=== PATIENT | female | born 1950 | race Caucasian/White ===

== ENCOUNTER 2018-09-18 16:42 | Inpatient (IN) | payer MEDICARE, MEDICAID ==
[~2018-09-18] VITALS: Ht 167.6 cm; Wt 55.8 kg
[~2018-09-18 16:42] MED LIST: ASPI1TAB PO; BACT400T PO; CRES20TA PO; GABA-843 PO; GLIP10TA6 PO; HYDR200T3 PO; NOVO1INJ4 SC; OMEP20CA3 PO; TOPA50TA8 PO; TRIC145T22 PO
[2018-09-18] MEDS ORDERED: ACET-683 PO (16:57)
[2018-09-18] MEDS ORDERED: NS 1,000 ML IV ONE (17:00)
[2018-09-18] MEDS ORDERED: LORazepam 2 MG/ML VIAL (J2060) IV STA ×2 (17:38→18:03)
[2018-09-18 18:07] LABS: BASO # 0.1 10^3/uL (0.0-0.2); BASO % 0.4 % (0.0-1.0); EOS # 0.1 10^3/uL (0.0-0.50); EOS % 0.6 % (0.0-3.0); HEMATOCRIT 42.7 % (36.0-47.0); HEMOGLOBIN 14.3 g/dl (12.0-15.5); LYMPH # 2.8 10^3/uL (1.5-4.5); LYMPH % 22.6 % (24.0-44.0); MEAN CORPUSCULAR HEMOGLOBIN 30.8 pg (27.0-33.0); MEAN CORPUSCULAR HGB CONC 33.5 g/dl (32.0-36.5); MEAN CORPUSCULAR VOLUME 91.8 fl (80.0-96.0); MONO # 0.7 10^3/uL (0.0-0.8); MONO % 5.8 % (0.0-5.0); NEUTROPHILS # 8.6 10^3/uL (1.8-7.7); NEUTROPHILS % 70.2 % (36.0-66.0); PLATELET COUNT, AUTOMATED 256 10^3/uL (150-450); RED BLOOD COUNT 4.65 10^6/uL (4.00-5.40); WHITE BLOOD COUNT 12.3 10^3/uL (4.0-10.0)
[2018-09-18] MEDS ORDERED: ADENOSINE 6MG/2ML INJECTION (J0153) IV STA (18:20)
[2018-09-18] MEDS ORDERED: ADENOSINE 6MG/2ML INJECTION (J0153) As Ordered ONE (18:22)
[2018-09-18] MEDS ORDERED: ONDANSETRON 4MG/2ML VIAL (J2405) IV ONE (18:30)
[2018-09-18] MEDS ORDERED: NS 500 ML IV ONE (18:45)
[2018-09-18 18:50] LABS: ALT/SGPT 17 U/L (12-78); BLOOD UREA NITROGEN 25 MG/DL (7-18); CALCIUM LEVEL 9.4 MG/DL (8.8-10.2); CARBON DIOXIDE LEVEL 26 MEQ/L (21-32); CHLORIDE LEVEL 100 MEQ/L (98-107); CREATININE FOR GFR 1.08 MG/DL (0.55-1.30); GLUCOSE, FASTING 183 MG/DL (70-100); POTASSIUM SERUM 5.1 MEQ/L (3.5-5.1); SODIUM LEVEL 137 MEQ/L (136-145)
[2018-09-18 18:51] LABS: ACETAMINOPHEN LEVEL < 2.0 UG/ML (10.0-30.0); ALBUMIN 4.3 GM/DL (3.2-5.2); BILIRUBIN,DIRECT < 0.1 MG/DL (0.0-0.2); BILIRUBIN,TOTAL 0.6 MG/DL (0.2-1.0); CPK CREATINE PHOSPHOKINASE 153 U/L (26-192); ETHYL ALCOHOL (ETHANOL) < 0.003 % (0.000-0.010); SALICYLATE LEVEL 1.8 MG/DL (5.0-30.0); THYROID STIMULATING HORMONE 0.663 uIU/ML (0.358-3.740); TOTAL PROTEIN 8.2 GM/DL (6.4-8.2); TROPONIN I < 0.02 NG/ML (< 0.10)
--- NOTE | 2018-09-18 19:05 | ECGEPIP ---
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
[2018-09-18 21:04] LABS: ABG BASE EXCESS 0.7 (-2.0-2.0); ABG O2 SATURATION 99.4 % (95.0-99.0); ABG PARTIAL PRESSURE CO2 44.3 mmHg (35.0-45.0); ABG PARTIAL PRESSURE O2 170.3 mmHg (75.0-100.0); ABG STANDARD HCO3 25.1 MEQ/L (22.0-26.0); ABG TOTAL CO2 27.3 MEQ/L (23.0-31.0); ABG pH (ARTERIAL) 7.386 UNITS (7.350-7.450)
[2018-09-18] MEDS ORDERED: chlorproMAZINE INJ 50MG/2ML AMP (J3230) IM STA (21:45)
[2018-09-18] MEDS ORDERED: diphenhydrAMINE INJ 50MG/ML VIAL (J1200) IM STA (21:55)
[2018-09-18] MEDS ORDERED: HALOPERIDOL 5 MG/ML VIAL (J1630) IM STA (21:55)
[2018-09-18] MEDS ORDERED: HALOPERIDOL 5 MG/ML VIAL (J1630) IV STA (22:11)
[2018-09-18] MEDS ORDERED: diphenhydrAMINE INJ 50MG/ML VIAL (J1200) IV STA (22:11)
[2018-09-18 22:12] LABS: AMPHETAMINES LEVEL URINE NEGATIVE (NEGATIVE); BARBITURATES URINE NEGATIVE (NEGATIVE); BENZODIAZEPINES URINE NEGATIVE (NEGATIVE); CANNABINOIDS URINE NEGATIVE (NEGATIVE); COCAINE METABOLITE URINE NEGATIVE (NEGATIVE); METHADONE URINE NEGATIVE (NEGATIVE); OPIATES URINE NEGATIVE (NEGATIVE); PHENCYCLIDINE URINE NEGATIVE (NEGATIVE)
[2018-09-18] MEDS ORDERED: NS 1,000 ML IV SCH (22:48)
[2018-09-18] MEDS ORDERED: DEXTROSE 50% 50 ML SYRINGE IV PRN (23:15)
[2018-09-18] MEDS ORDERED: GLUCOSE 4 GM CHEW TABLET PO PRN (23:15)
[2018-09-18] MEDS ORDERED: GLUCAGON FOR INJ 1 MG VIAL (J1610) SC PRN (23:15)
[2018-09-18 23:30] LABS: APPEARANCE, URINE CLEAR (CLEAR); BACTERIA, URINE AUTO NEGATIVE (NEGATIVE); BILIRUBIN, URINE AUTO NEGATIVE (NEGATIVE); BLOOD, URINE BLOOD NEGATIVE (NEGATIVE); COLOR, URINE STRAW (YELLOW); GLUCOSE, URINE (UA) AUTO 1+ mg/dL (NEGATIVE); KETONE, URINE AUTO TRACE mg/dL (NEGATIVE); LEUKOCYTE ESTERASE, URINE AUTO NEGATIVE (NEGATIVE); MUCUS, URINE SMALL (NEGATIVE); NITRITE, URINE AUTO NEGATIVE (NEGATIVE); PROTEIN, URINE AUTO 2+ mg/dL (NEGATIVE); RBC, URINE AUTO 4 /HPF (0-3); SPECIFIC GRAVITY URINE AUTO 1.009 (1.002-1.035); SQUAMOUS EPITHELIAL CELL UR AU 0 /HPF (0-6); UROBILINOGEN, URINE AUTO 0.2 mg/dL (0.0-2.0); WBC, URINE AUTO 0 /HPF (0-3)
[2018-09-19] MEDS ORDERED: chlorproMAZINE INJ 50MG/2ML AMP (J3230) IM STA (00:18)
[2018-09-19] MEDS: HumaLOG INSULIN (NovoLOG) PER UNIT SC SCH ×4 (01:51→17:49)
[2018-09-19 02:28] VITALS: BP 119/74
[2018-09-19 04:00] VITALS: BP 114/76
[2018-09-19 05:36] LABS: HEMATOCRIT 35.9 % (36.0-47.0); MEAN CORPUSCULAR HEMOGLOBIN 30.3 pg (27.0-33.0); MEAN CORPUSCULAR HGB CONC 33.7 g/dl (32.0-36.5); PLATELET COUNT, AUTOMATED 202 10^3/uL (150-450); RED BLOOD COUNT 3.99 10^6/uL (4.00-5.40); WHITE BLOOD COUNT 9.1 10^3/uL (4.0-10.0)
[2018-09-19 05:43] LABS: HEMOGLOBIN 12.1 g/dl (12.0-15.5)
[2018-09-19 05:51] LABS: BLOOD UREA NITROGEN 22 MG/DL (7-18); C REACTIVE PROTEIN QUANTITATIV 1.12 MG/DL (0.00-0.30); CALCIUM LEVEL 8.7 MG/DL (8.8-10.2); CARBON DIOXIDE LEVEL 28 MEQ/L (21-32); CHLORIDE LEVEL 105 MEQ/L (98-107); CREATININE FOR GFR 0.82 MG/DL (0.55-1.30); GLOMERULAR FILTRATION RATE > 60.0 (>45); GLUCOSE, FASTING 117 MG/DL (70-100); POTASSIUM SERUM 3.5 MEQ/L (3.5-5.1); SODIUM LEVEL 139 MEQ/L (136-145)
[2018-09-19] MEDS: HALOPERIDOL 5 MG/ML VIAL (J1630) IV PRN ×2 (06:15→17:09)
[2018-09-19] MEDS: HEPARIN SOD (PORCINE) 5000 UNITS/ML VIAL SC SCH ×3 (06:15→22:49)
--- NOTE | 2018-09-19 06:35 | ECGEPIP ---
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
[2018-09-19 08:00] VITALS: BP 139/91
--- NOTE | 2018-09-19 08:29 | REP ---
AP PORTABLE CHEST: 09/18/2018. Clinical history: Syncope. Comparison: 12/16/2014. Findings: Distended loops of bowel underneath the left diaphragm and over the central upper abdomen. Lungs only marginally adequate in the degree of inflation. There is minor subsegmental atelectatic change above the left diaphragm just lateral to the heart border. No dense consolidation, effusion or mass. No cardiomegaly or edema. Aorta is tortuous and calcified but unchanged. Airway intact. There are degenerative changes of the shoulders and spine. Impression: 1. Some linear atelectatic change at the left base but no cardiomegaly, edema, effusion or definite infiltrate. 2. Bowel loops gas-filled and somewhat distended underneath the left diaphragm and mid upper abdomen. Incomplete evaluation of this finding on a portable chest x-ray. Electronically Signed by Rommel Hong MD 09/19/2018 01:06 P
[2018-09-19] MEDS ORDERED: METOPROLOL 5 MG/5 ML VIAL IV STA ×2 (09:00→19:02)
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
[2018-09-19 12:00] VITALS: BP 134/89
[2018-09-19] MEDS ORDERED: FLEET ENEMA PR PRN (18:15)
[2018-09-19] MEDS ORDERED: SENOKOT S TAB PO PRN (18:15)
--- NOTE | 2018-09-19 19:38 | IPN ---
DATE: 09/19/2018 SUBJECTIVE: Patient is seen and examined in the morning. Patient is completely sedated, not able to answer questions. OBJECTIVE: VITAL SIGNS: Temperature 98, pulse 126, respiratory rate 22, blood pressure 139/91, pulse oximetry 93% in room air. GENERAL: Patient is sedated, patient is not awake or oriented. HEENT: Normocephalic, atraumatic. CARDIOVASCULAR: Tachycardia, positive S1, S2. LUNGS: Clear to auscultation bilaterally. ABDOMEN: Soft, nontender. EXTREMITIES: Patient had amputation of the right lower extremity and there is a dressing wrap on the left foot. No active discharge noted. No lower extremity edema. LABORATORY DATA: WBC 9.1, hemoglobin 12.1, hematocrit 35.9, platelet count 202, sodium 139, potassium 3.5, chloride 104, carbon dioxide 28, BUN 22, creatinine 0.82, GFR greater than 60, fasting glucose 117, calcium 8.7, C-reactive protein 1.12. ASSESSMENT AND PLAN: 1. Mental status changes. Patient does have baseline dementia. There is possibility for progression of the dementia versus psychosis. Repeat urinalysis negative. CT of the head ordered. Patient does not have any white count or fever. Negative syphilis. Urinalysis negative. Urine alcohol level is negative. Patient has a sitter in place. 2. Tachycardia. According to history, no significant cardiac history per record. Patient is on telemetry. Patient on metoprolol. 3. Chronic hypertension. Blood pressure in the satisfactory range. 4. Diabetes. Currently patient is sedated and patient does not have oral intake. Patient is on insulin every 6 hours. 5. Questionable history of rheumatoid arthritis. Previously patient was on hydroxychloroquine. Right foot amputation. 6. Deep venous thrombosis (DVT) prophylaxis. On heparin.
[2018-09-19 20:00] VITALS: BP 114/75
[2018-09-19] MEDS ORDERED: diphenhydrAMINE INJ 50MG/ML VIAL (J1200) IV ONE (20:00)
--- NOTE | 2018-09-19 21:17 | ECGEPIP ---
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
[2018-09-19] MEDS: METOPROLOL TART 25 MG TABLET PO SCH (22:00)
[2018-09-19] MEDS ORDERED: OLANZapine INTRAMUSCULAR 10 MG VIAL (S0166) IM ONE (23:15)
[2018-09-20] VITALS: BP 109/72
[2018-09-20 02:30] VITALS: BP 106/60
[2018-09-20] MEDS ORDERED: NS 1,000 ML IV SCH (02:30)
[2018-09-20 04:00] VITALS: BP 120/74
--- NOTE | 2018-09-20 04:01 | IPNPDOC ---
Text Note Date of Service The patient was seen on 09/20/18. NOTE called by nurse for persistent tachycardia. Pt HR 130's inspite of being at r est. Trop X 2 neg, pt remains on tele. will repeat EKG in am, TSH wnl. will fluid hydrate, will get d-dimer level. if elevated with r/o DVT/PE. ? etiology for sustained tachycardia. CRP 1.6 on admission, septic workup neg thus far. no signs to suggest underlying infectious etiology. VS,Fishbone, I+O VS, Fishbone, I+O Laboratory Tests 09/19/18 04:37 Red Blood Count 3.99 L, Mean Corpuscular Volume 90.0, Mean Corpuscular Hemoglobin 30.3, Mean Corpuscular Hemoglobin Concent 33.7, Red Cell Distribution Width 11.9, Calcium Level 8.7 L Vital Signs Date Time Temp Pulse Resp B/P (MAP) Pulse Ox O2 Delivery O2 Flow Rate FiO2 09/20/18 02:30 106/60 (75) 09/19/18 22:00 130 09/19/18 20:00 98.0 18 94 Room Air I&O- Last 24 Hours up to 6 AM 09/20/18 06:00 Intake Total 440 ml Output Total 400 ml Balance 40 ml WEDNESDAY,PRINCESS HUMPHREY Sep 20, 2018 04:01
[2018-09-20 04:38] LABS: HEMATOCRIT 35.4 % (36.0-47.0); HEMOGLOBIN 11.7 g/dl (12.0-15.5); MEAN CORPUSCULAR HEMOGLOBIN 30.3 pg (27.0-33.0); MEAN CORPUSCULAR HGB CONC 33.1 g/dl (32.0-36.5); MEAN CORPUSCULAR VOLUME 91.7 fl (80.0-96.0); PLATELET COUNT, AUTOMATED 204 10^3/uL (150-450); RED BLOOD COUNT 3.86 10^6/uL (4.00-5.40); WHITE BLOOD COUNT 9.4 10^3/uL (4.0-10.0)
[2018-09-20 04:51] LABS: D-DIMER QUANT 873.96 ng/ml (<500)
[2018-09-20 04:56] LABS: BLOOD UREA NITROGEN 19 MG/DL (7-18); CALCIUM LEVEL 8.3 MG/DL (8.8-10.2); CARBON DIOXIDE LEVEL 27 MEQ/L (21-32); CHLORIDE LEVEL 106 MEQ/L (98-107); CREATININE FOR GFR 0.93 MG/DL (0.55-1.30); GLOMERULAR FILTRATION RATE > 60.0 (>45); GLUCOSE, FASTING 77 MG/DL (70-100); MAGNESIUM LEVEL 1.6 MG/DL (1.8-2.4); POTASSIUM SERUM 3.7 MEQ/L (3.5-5.1); SODIUM LEVEL 141 MEQ/L (136-145)
[2018-09-20] MEDS ORDERED: MAG SULF 1GM/100ML (MAG RUN) 1 GM in APPROPRIATE DILUENT 1 EA IV ONE (05:00)
--- NOTE | 2018-09-20 05:13 | IPNPDOC ---
Text Note Date of Service The patient was seen on 09/20/18. NOTE pt remains tachycardic inspite of hydration, serial trops negs, tsh wnl. d-dimer adjusted for age elevated. pt has RF, she has amputation and is likely bedbound. Pt has underlying dementia , cannot give consent for CTA chest. will order VQ scan and place pt on empiric Anticoagulation for now. VQ scan ordered for am, if unable to complete due to her dementia,pt may require 2 physician consent for CTA chest to r/o PE. Pt noted to be saturating 94-99% RA, however being that she is immobile and d-dimer remains elevated and she remains profoundly tachycardic, thromboembolic disease needs to be excluded. VS,Fishbone, I+O VS, Fishbone, I+O Laboratory Tests 09/20/18 04:25 Red Blood Count 3.86 L, Mean Corpuscular Volume 91.7, Mean Corpuscular Hemoglobin 30.3, Mean Corpuscular Hemoglobin Concent 33.1, Red Cell Distribution Width 12.2, Calcium Level 8.3 L Vital Signs Date Time Temp Pulse Resp B/P (MAP) Pulse Ox O2 Delivery O2 Flow Rate FiO2 09/20/18 04:00 99.3 134 18 120/74 (89) 98 Room Air I&O- Last 24 Hours up to 6 AM 09/20/18 06:00 Intake Total 440 ml Output Total 475 ml Balance -35 ml WEDNESDAY,PRINCESS HUMPHREY Sep 20, 2018 05:13
[2018-09-20] MEDS: HumaLOG INSULIN (NovoLOG) PER UNIT SC SCH ×4 (05:23→18:00)
[2018-09-20 05:25] LABS: INR 1.04; PROTHROMBIN TIME 13.7 SECONDS (12.1-14.4)
[2018-09-20 05:26] LABS: PARTIAL THROMBOPLASTIN TIME 38.9 SECONDS (25.4-37.6)
[2018-09-20] MEDS: METOPROLOL TART 25 MG TABLET PO SCH ×3 (05:48→21:28)
[2018-09-20 08:00] VITALS: BP 129/75
[2018-09-20] MEDS ORDERED: VANCOMYCIN HCL 1,000 MG, VIAL MATE ADAPTER 1 EACH in D5W 250 ML IV ONE (09:00)
[2018-09-20] MEDS ORDERED: ENOXAPARIN 60 MG/0.6 ML SYR (J1650) SC SCH (09:00)
[2018-09-20 12:00] VITALS: BP 129/79
--- NOTE | 2018-09-20 12:13 | PHACANCOPD ---
PHARMACY VANCOMYCIN DOSING Pt Demographics Demographics Patient Age:68 , Weight:55.800 , Gender: female Adjusted Body Weight Date: 09/20/18, Adjusted Body Weight: Kg Vancomycin Vancomycin indication: BACTEREMIA Vancomycin Target Ranges: 10-20 mcg/ml Vancomycin Load Y/N: Yes Load Dose Date Time Vancomycin Load Dose: 1g Date: 09/20/18 Time: 0900 Vancomycin Dose Date: 09/20/18. Current Vancomycin Dose: [750mg IV Q18H] Intermittent Dosing?: No Labs Labs Item Value Date Time White Blood Count 12.3 10^3/uL H 09/18/18 1759 White Blood Count 9.1 10^3/uL 09/19/18 0437 White Blood Count 9.4 10^3/uL 09/20/18 0425 Creatinine 0.82 MG/DL 09/19/18 0437 Creatinine 0.93 MG/DL 09/20/18 0425 Blood Urea Nitrogen 22 MG/DL H 09/19/18 0437 Blood Urea Nitrogen 19 MG/DL H 09/20/18 0425 Lactic Acid Followup at 4 Hours 1.0 MMOL/L 09/18/18 2218 C-Reactive Protein, Quantitative 1.12 MG/DL H 09/19/18 0437 Micro Microbiology 09/20/18 Blood Culture, Received Pending 09/20/18 Blood Culture, Received Pending 09/18/18 Blood Culture - Preliminary, Resulted No growth after 24 hours . All specim... 09/18/18 Blood Culture - Preliminary, Resulted 09/18/18 Urine Culture - Final, Complete Creatinine Clearance Date:09/20/18. Est Creatinine Clearance: [~50ml/min]. Pending Labs Vancomycin trough level scheduled 09/21/18 @1999, prior to 3rd dose Assessment and Plan Maintaining Current Dose?: Yes Reason for dose change: No Dose Change Pharmacist Note Pharmacist Note Date: 09/20/18. Pharmacist note: Day #1 empiric vancomycin therapy initiated with a 1g loading dose @0900, followed by a maintenance regimen of 750mg IV Q18H for the treatment of bacteremia - aiming for a goal trough of 10-20mcg/ml. The patient was admitted for mental status changes and has preliminary blood culture results growing gram positive cocci. 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 WBC and LA were elevated on admit now WNL, CRP is mildly elevated, pulse is elevated, and the patient is afebrile. A vancomycin trough has been scheduled to be drawn tomorrow, 09/21/18 @2000, prior to the 3rd dose. We will continue to monitor and make dose adjustments if needed. KERLINE PARTIDA PHARMACY Sep 20, 2018 12:13
[2018-09-20] MEDS: HALOPERIDOL 5 MG/ML VIAL (J1630) IV PRN ×2 (12:47→21:29)
--- NOTE | 2018-09-20 14:40 | REP ---
PERFUSION LUNG SCAN: HISTORY: Assess for pulmonary embolus. TECHNIQUE: A ventilation-perfusion lung scan was ordered and anticipated, however the patient could not be induced to cooperate with the ventilatory portion of the examination. Only the perfusion images could be acquired. A 5.5 mCi dose of technetium-99m MAA was administered intravenously. Comparison is made with chest x-ray from September 18, 2018. FINDINGS: There is actually fairly homogeneous perfusion distribution to the lung myers bilaterally. There is no evidence to suggest pulmonary embolus. IMPRESSION: Homogeneous perfusion uptake bilaterally. No evidence to suggest pulmonary embolism. The patient was unable to perform the ventilation portion of the examination. Electronically Signed by Mitch Voss MD 09/20/2018 05:37 P
--- NOTE | 2018-09-20 15:47 | IPNPDOC ---
Subjective Date Seen The patient was seen on 09/20/18. Subjective Chief Complaint/HPI Patient seen and examined at the bedside. She was noted to be sleeping this morning, and not engaging in any conversation as she was apparently very combative overnight as per house staff. However, later this afternoon, the patient was more alert, and participating in conversation when her family was at the bedside. Objective Physical Examination General Exam: Positive: Cooperative, No Acute Distress ENT Exam: Positive: Atraumatic, Other ENT (bitemporal wasting noted. Patient noted to have poor dental hygiene with multiple missing teeth.) Neck Exam: Negative: JVD Chest Exam: Positive: Clear to auscultation, Normal air movement Heart Exam: Positive: Rate Normal, Normal S1, Normal S2 Telemetry: Positive: Sinus, Tachycardia Abdomen Exam: Positive: Soft; Negative: Tenderness Extremity Exam: Positive: Other (right below the knee amputation noted); Negative: Tenderness, Swelling Psych Exam: Negative: Oriented x 3 (patient oriented to person and time, but not place, situation) Assessment /Plan Plan/VTE VTE Prophylaxis Ordered?: Yes Plan Worsening dementia CT Head official report Pending MRI Brain ordered No obvious or overt sign of infection; UA negative, CXR with no acute findings, or reversible metabolic encephalopathy Patient's family endorses years of worsening behavior, decreased PO intake PFS on board for further delineation of disposition Sinus Tachycardia likely 2/2 Agitation Patient with no overt infectious etiology V/Q Scan negative for PE---We'll D/C Lovenox Cont Metoprolol 1/2 Bottles Positive for Gram Positive Cocci--likely contaminant Patient has been afebrile, WBC wnl this AM, no overt source of infection Repeat Blood cultures ordered this AM We will empirically start the patient on vancomycin until repeat cultures are confirmed to be negative Hypertension Patient apparently has not taken medications for years Continue metoprolol for now History of Diabetes Again, the patient has apparently not taken any medications for years Hemoglobin A1c level ordered Sliding scale insulin Hx of RLE BKA Hx of CVA Currently not on Meds as the patient has refused in the past Deep venous thrombosis (DVT) prophylaxis Heparin Goals of Care: I had an extensive discussion at the bedside with the patient's 2 sons, daughter, and about goals of care. They have all unanimously stated that the patient would not want any aggressive measures such as resuscitation, intubation with mechanical ventilation, or feeding tube placement. A MOLST form has been signed, dated, and placed in the chart reflecting DO NOT RESUSCITATE/DO NOT INTUBATE and feeding tube status. All questions were answered to their satisfaction, and they have verbalized understanding the implications of their decision. Disposition: PFS on board for further delineation VS, I&O, 24H, Fishbone Vital Signs/I&O Vital Signs Date Time Temp Pulse Resp B/P (MAP) Pulse Ox O2 Delivery O2 Flow Rate FiO2 09/20/18 12:00 98.6 118 20 129/79 (96) 98 Room Air I&O- Last 24 Hours up to 6 AM 09/20/18 06:00 Intake Total 440 ml Output Total 550 ml Balance -110 ml Laboratory Data 24H LABS Laboratory Tests 2 09/19/18 23:42: Bedside Glucose (Misc Panel) 94 09/20/18 02:41: Troponin I 0.03# 09/20/18 04:25: Nucleated Red Blood Cells % (auto) 0.0, Prothrombin Time 13.7, Prothromb Time International Ratio 1.04, Activated Partial Thromboplast Time 38.9H, D-Dimer, Quantitative 873.96H, Anion Gap 8, Glomerular Filtration Rate > 60.0, Blood Urea Nitrogen 19H, Creatinine 0.93, Sodium Level 141, Potassium Level 3.7, Chloride Level 106, Carbon Dioxide Level 27, Calcium Level 8.3L, Magnesium Level 1.6L 09/20/18 04:55: 09/20/18 12:12: Bedside Glucose (Misc Panel) 74L CBC/BMP Laboratory Tests 09/20/18 04:25 Red Blood Count 3.86 L, Mean Corpuscular Volume 91.7, Mean Corpuscular Hemoglobin 30.3, Mean Corpuscular Hemoglobin Concent 33.1, Red Cell Distribution Width 12.2, Calcium Level 8.3 L Microbiology Microbiology 09/20/18 Blood Culture, Received Pending 09/20/18 Blood Culture, Received Pending 09/18/18 Blood Culture - Preliminary, Resulted No growth after 24 hours . All specim... 09/18/18 Blood Culture - Preliminary, Resulted 09/18/18 Urine Culture - Final, Complete JUSTIN ALFONSO MD Sep 20, 2018 15:47
[2018-09-20 16:28] LABS: HEMOGLOBIN A1c 8.6 %
--- NOTE | 2018-09-20 19:26 | ECGEPIP ---
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
[2018-09-20 20:00] VITALS: BP 130/95
[2018-09-20] MEDS: HEPARIN SOD (PORCINE) 5000 UNITS/ML VIAL SQ SCH ×2 (21:00→21:29)
[2018-09-21] VITALS (7 sets, daily range): BP systolic 102–134; BP diastolic 60–78
[2018-09-21] MEDS ORDERED: VANCOMYCIN HCL 750 MG, VIAL MATE ADAPTER 1 EACH in D5W 250 ML IV SCH (03:00)
[2018-09-21] MEDS: METOPROLOL TART 25 MG TABLET PO SCH ×4 (05:32→21:30)
[2018-09-21] MEDS: HumaLOG INSULIN (NovoLOG) PER UNIT SC SCH ×2 (06:00)
[2018-09-21 06:19] LABS: HEMATOCRIT 32.9 % (36.0-47.0); MEAN CORPUSCULAR HEMOGLOBIN 30.6 pg (27.0-33.0); MEAN CORPUSCULAR HGB CONC 33.4 g/dl (32.0-36.5); MEAN CORPUSCULAR VOLUME 91.4 fl (80.0-96.0); PLATELET COUNT, AUTOMATED 193 10^3/uL (150-450); WHITE BLOOD COUNT 7.2 10^3/uL (4.0-10.0)
[2018-09-21 06:43] LABS: BLOOD UREA NITROGEN 16 MG/DL (7-18); CALCIUM LEVEL 8.7 MG/DL (8.8-10.2); CARBON DIOXIDE LEVEL 24 MEQ/L (21-32); CHLORIDE LEVEL 108 MEQ/L (98-107); CREATININE FOR GFR 0.66 MG/DL (0.55-1.30); GLOMERULAR FILTRATION RATE > 60.0 (>45); GLUCOSE, FASTING 104 MG/DL (70-100); POTASSIUM SERUM 3.2 MEQ/L (3.5-5.1); SODIUM LEVEL 140 MEQ/L (136-145)
[2018-09-21] MEDS ORDERED: POTASSIUM CHLORIDE 10% LIQ 20 MEQ/15 ML UDC PO ONE (08:00)
[2018-09-21] MEDS: HEPARIN SOD (PORCINE) 5000 UNITS/ML VIAL SQ SCH ×3 (09:10→21:25)
[2018-09-21 09:42] LABS: VITAMIN B12 LEVEL 509 PG/ML (232-1245)
--- NOTE | 2018-09-21 11:12 | IPNPDOC ---
Subjective Date Seen The patient was seen on 09/21/18. Subjective Chief Complaint/HPI No acute overnight events noted. Objective Physical Examination General Exam: Positive: Alert, Cooperative, No Acute Distress ENT Exam: Positive: Atraumatic, Other ENT (bitemporal wasting noted. Patient noted to have poor dental hygiene with multiple missing teeth.) Neck Exam: Negative: JVD Chest Exam: Positive: Clear to auscultation, Normal air movement Heart Exam: Positive: Rate Normal, Normal S1, Normal S2 Telemetry: Positive: Sinus Abdomen Exam: Positive: Soft; Negative: Tenderness Extremity Exam: Positive: Other (right below the knee amputation noted); Negative: Tenderness, Swelling Psych Exam: Negative: Oriented x 3 (patient oriented to person and time, but not place, situation) Assessment /Plan Plan/VTE VTE Prophylaxis Ordered?: Yes Plan Worsening dementia CT Head with chronic ischemic changes, no acute finding No obvious or overt sign of infection; UA negative, CXR with no acute findings, or reversible metabolic encephalopathy Patient's family endorses years of worsening behavior, decreased PO intake PFS on board for further delineation of disposition Sinus Tachycardia likely 2/2 Agitation Patient with no overt infectious etiology V/Q Scan negative for PE Cont Metoprolol 1/2 Bottles Positive for Gram Positive Cocci--likely contaminant Patient has been afebrile, WBC wnl, no overt source of infection Repeat Blood cultures from 09/20 negative Vanco discontinued Hypertension Patient apparently has not taken medications for years Continue metoprolol for now History of Diabetes Again, the patient has apparently not taken any medications for years Hemoglobin A1c noted to be 8.6% Sliding scale insulin Hx of RLE BKA Hx of CVA Currently not on Meds as the patient has refused in the past Deep venous thrombosis (DVT) prophylaxis Heparin Dispo--as per PFS VS, I&O, 24H, Fishbone Vital Signs/I&O Vital Signs Date Time Temp Pulse Resp B/P (MAP) Pulse Ox O2 Delivery O2 Flow Rate FiO2 09/21/18 08:00 98.5 78 20 130/63 (85) 100 Room Air I&O- Last 24 Hours up to 6 AM 09/21/18 06:00 Intake Total 635 ml Output Total 400 ml Balance 235 ml Laboratory Data 24H LABS Laboratory Tests 2 09/20/18 12:12: Bedside Glucose (Misc Panel) 74L 09/20/18 23:55: Bedside Glucose (Misc Panel) 134H 09/21/18 05:43: Nucleated Red Blood Cells % (auto) 0.0, Anion Gap 8, Glomerular Filtration Rate > 60.0, Blood Urea Nitrogen 16, Creatinine 0.66, Sodium Level 140, Potassium Level 3.2L, Chloride Level 108H, Carbon Dioxide Level 24, Calcium Level 8.7L CBC/BMP Laboratory Tests 09/21/18 05:43 Red Blood Count 3.60 L, Mean Corpuscular Volume 91.4, Mean Corpuscular Hemoglobin 30.6, Mean Corpuscular Hemoglobin Concent 33.4, Red Cell Distribution Width 12.0, Calcium Level 8.7 L Microbiology Microbiology 09/20/18 Blood Culture - Preliminary, Resulted No growth after 24 hours . All specim... 09/20/18 Blood Culture - Preliminary, Resulted No growth after 24 hours . All specim... 09/18/18 Blood Culture - Preliminary, Resulted No Growth after 48 hours. All Specime... 09/18/18 Blood Culture - Preliminary, Resulted 09/18/18 Urine Culture - Final, Complete JUSTIN ALFONSO MD Sep 21, 2018 11:12
[2018-09-21] MEDS ORDERED: ACETAMINOPHEN TAB 650MG DOSE (2X325MG) PO PRN (16:30)
[2018-09-21] MEDS: HALOPERIDOL 5 MG/ML VIAL (J1630) IV PRN (21:25)
[2018-09-22] MEDS: HALOPERIDOL 5 MG/ML VIAL (J1630) IV PRN ×2 (04:48→16:37)
[2018-09-22] MEDS: METOPROLOL TART 25 MG TABLET PO SCH ×3 (06:00→22:22)
[2018-09-22] MEDS: HEPARIN SOD (PORCINE) 5000 UNITS/ML VIAL SQ SCH ×2 (09:00→21:00)
[2018-09-22] MEDS: MEMANTINE 5MG TABLET (NAMENDA) PO SCH (11:09)
[2018-09-22] MEDS: GABAPENTIN 100 MG CAP PO SCH ×3 (11:09→21:00)
--- NOTE | 2018-09-22 12:38 | IPNPDOC ---
Subjective Date Seen The patient was seen on 09/22/18. Subjective Chief Complaint/HPI Patient seen and examined at the bedside. No acute overnight events noted. The patient has been started on memantine/donepezil for dementia. Objective Physical Examination General Exam: Positive: Alert, Cooperative, No Acute Distress ENT Exam: Positive: Atraumatic, Other ENT (bitemporal wasting noted. Patient noted to have poor dental hygiene with multiple missing teeth.) Neck Exam: Negative: JVD Chest Exam: Positive: Clear to auscultation, Normal air movement Heart Exam: Positive: Rate Normal, Normal S1, Normal S2 Telemetry: Positive: Sinus Abdomen Exam: Positive: Soft; Negative: Tenderness Extremity Exam: Positive: Other (right below the knee amputation noted); Negative: Tenderness, Swelling Psych Exam: Negative: Oriented x 3 (patient oriented to person and time, but not place, situation) Assessment /Plan Plan/VTE VTE Prophylaxis Ordered?: Yes Plan Worsening dementia CT Head with chronic ischemic changes, no acute finding No obvious or overt sign of infection; UA negative, CXR with no acute findings, or reversible metabolic encephalopathy Patient's family endorses years of worsening behavior, decreased PO intake Started on Memantine, Donepezil PFS on board for further delineation of disposition Sinus Tachycardia likely 2/2 Agitation, resolved 1/2 Bottles Positive for Gram Positive Cocci--likely contaminant Patient has been afebrile, WBC wnl, no overt source of infection Repeat Blood cultures from 09/20 negative Vanco discontinued Hypertension Patient apparently has not taken medications for years Continue metoprolol for now History of Diabetes Again, the patient has apparently not taken any medications for years Hemoglobin A1c noted to be 8.6% Sliding scale insulin Peripheral Neuropathy Started on Gabapentin Hx of RLE BKA Hx of CVA Currently not on Meds as the patient has refused in the past Deep venous thrombosis (DVT) prophylaxis Heparin SC Dispo--as per PFS VS, I&O, 24H, Fishbone Vital Signs/I&O Vital Signs Date Time Temp Pulse Resp B/P (MAP) Pulse Ox O2 Delivery O2 Flow Rate FiO2 09/21/18 21:30 82 134/63 09/21/18 20:00 97.7 18 98 Room Air I&O- Last 24 Hours up to 6 AM 09/22/18 06:00 Intake Total 780 ml Output Total 550 ml Balance 230 ml Laboratory Data 24H LABS Laboratory Tests 2 09/21/18 17:06: Bedside Glucose (Misc Panel) 91 09/22/18 00:26: Bedside Glucose (Misc Panel) 198H Microbiology Microbiology 09/20/18 Blood Culture - Preliminary, Resulted No Growth after 48 hours. All Specime... 09/20/18 Blood Culture - Preliminary, Resulted No Growth after 48 hours. All Specime... 09/18/18 Blood Culture - Preliminary, Resulted No Growth after 72 hours. All specime... 09/18/18 Blood Culture - Final, Complete Staphylococcus Capitis 09/18/18 Urine Culture - Final, Complete JUSTIN ALFONSO MD Sep 22, 2018 12:38
[2018-09-22 14:00] VITALS: BP 125/68
[2018-09-22] MEDS ORDERED: LORazepam 2 MG/ML VIAL (J2060) IV STA (19:54)
[2018-09-22] MEDS ORDERED: LORazepam 2 MG/ML VIAL (J2060) IV PRN (20:00)
[2018-09-22] MEDS: DONEPEZIL 5 MG TAB PO SCH (21:00)
[2018-09-22] MEDS ORDERED: diphenhydrAMINE INJ 50MG/ML VIAL (J1200) IV STA (21:08)
[2018-09-22] MEDS ORDERED: diphenhydrAMINE INJ 50MG/ML VIAL (J1200) IV ONE (21:15)
[2018-09-22 22:00] VITALS: BP 160/98
[2018-09-23] MEDS: ACETAMINOPHEN TAB 650MG DOSE (2X325MG) PO PRN (03:24)
[2018-09-23] MEDS: HALOPERIDOL 5 MG/ML VIAL (J1630) IV PRN (04:23)
[2018-09-23 06:00] VITALS: BP 96/57
[2018-09-23] MEDS: METOPROLOL TART 25 MG TABLET PO SCH ×3 (06:19→22:09)
[2018-09-23] MEDS: GABAPENTIN 100 MG CAP PO SCH ×3 (09:00→22:03)
[2018-09-23] MEDS: HEPARIN SOD (PORCINE) 5000 UNITS/ML VIAL SQ SCH ×2 (09:00→22:12)
[2018-09-23] MEDS: MEMANTINE 5MG TABLET (NAMENDA) PO SCH (09:00)
--- NOTE | 2018-09-23 13:49 | IPNPDOC ---
Subjective Date Seen The patient was seen on 09/23/18. Subjective Chief Complaint/HPI Patient seen and examined at the bedside. No acute overnight events noted. Objective Physical Examination General Exam: Positive: Alert, Cooperative, No Acute Distress ENT Exam: Positive: Atraumatic, Other ENT (bitemporal wasting noted. Patient noted to have poor dental hygiene with multiple missing teeth.) Neck Exam: Negative: JVD Chest Exam: Positive: Clear to auscultation, Normal air movement Heart Exam: Positive: Rate Normal, Normal S1, Normal S2 Abdomen Exam: Positive: Soft; Negative: Tenderness Extremity Exam: Positive: Other (right below the knee amputation noted); Negative: Tenderness, Swelling Psych Exam: Negative: Oriented x 3 (patient oriented to person and time, but not place, situation) Assessment /Plan Plan/VTE VTE Prophylaxis Ordered?: Yes Plan Worsening dementia CT Head with chronic ischemic changes, no acute finding No obvious or overt sign of infection; UA negative, CXR with no acute findings, or reversible metabolic encephalopathy Patient's family endorses years of worsening behavior, decreased PO intake Started on Memantine, Donepezil PFS on board for further delineation of disposition Sinus Tachycardia likely 2/2 Agitation, resolved 1/2 Bottles Positive for Gram Positive Cocci--likely contaminant Patient has been afebrile, WBC wnl, no overt source of infection Repeat Blood cultures from 09/20 negative Vanco discontinued Hypertension Patient apparently has not taken medications for years Continue metoprolol for now History of Diabetes Again, the patient has apparently not taken any medications for years Hemoglobin A1c noted to be 8.6% Sliding scale insulin Peripheral Neuropathy Started on Gabapentin Hx of RLE BKA Hx of CVA Currently not on Meds as the patient has refused in the past Deep venous thrombosis (DVT) prophylaxis Heparin SC Dispo--as per PFS VS, I&O, 24H, Fishbone Vital Signs/I&O Vital Signs Date Time Temp Pulse Resp B/P (MAP) Pulse Ox O2 Delivery O2 Flow Rate FiO2 09/23/18 06:19 77 96/57 09/23/18 06:00 98.0 16 99 Room Air I&O- Last 24 Hours up to 6 AM 09/23/18 05:59 Intake Total 1080 ml Output Total 400 ml Balance 680 ml Laboratory Data 24H LABS Laboratory Tests 2 09/22/18 23:36: Bedside Glucose (Misc Panel) 140H 09/23/18 06:21: Bedside Glucose (Misc Panel) 121H 09/23/18 12:02: Bedside Glucose (Misc Panel) 107 Microbiology Microbiology 09/20/18 Blood Culture - Preliminary, Resulted No Growth after 72 hours. All specime... 09/20/18 Blood Culture - Preliminary, Resulted No Growth after 72 hours. All specime... 09/18/18 Blood Culture - Preliminary, Resulted No Growth after 72 hours. All specime... 09/18/18 Blood Culture - Final, Complete Staphylococcus Capitis 09/18/18 Urine Culture - Final, Complete JUSTIN ALFONSO MD Sep 23, 2018 13:49
[2018-09-23 14:00] VITALS: BP 112/76
[2018-09-23 22:00] VITALS: BP 150/100
[2018-09-23] MEDS: DONEPEZIL 5 MG TAB PO SCH (22:03)
[2018-09-24] MEDS: HALOPERIDOL 5 MG/ML VIAL (J1630) IV PRN ×3 (01:55→15:21)
[2018-09-24] MEDS ORDERED: diphenhydrAMINE INJ 50MG/ML VIAL (J1200) IV ONE (03:15)
[2018-09-24] MEDS: METOPROLOL TART 25 MG TABLET PO SCH ×3 (06:00→22:00)
[2018-09-24 07:15] LABS: HEMATOCRIT 39.6 % (36.0-47.0); HEMOGLOBIN 13.2 g/dl (12.0-15.5); MEAN CORPUSCULAR HEMOGLOBIN 30.5 pg (27.0-33.0); MEAN CORPUSCULAR HGB CONC 33.3 g/dl (32.0-36.5); MEAN CORPUSCULAR VOLUME 91.5 fl (80.0-96.0); PLATELET COUNT, AUTOMATED 255 10^3/uL (150-450); RED BLOOD COUNT 4.33 10^6/uL (4.00-5.40); WHITE BLOOD COUNT 7.2 10^3/uL (4.0-10.0)
[2018-09-24 07:31] LABS: BLOOD UREA NITROGEN 19 MG/DL (7-18); CALCIUM LEVEL 9.8 MG/DL (8.8-10.2); CARBON DIOXIDE LEVEL 29 MEQ/L (21-32); CHLORIDE LEVEL 99 MEQ/L (98-107); CREATININE FOR GFR 0.97 MG/DL (0.55-1.30); GLOMERULAR FILTRATION RATE > 60.0 (>45); GLUCOSE, FASTING 138 MG/DL (70-100); POTASSIUM SERUM 3.7 MEQ/L (3.5-5.1); SODIUM LEVEL 136 MEQ/L (136-145)
[2018-09-24] MEDS: MEMANTINE 5MG TABLET (NAMENDA) PO SCH (08:41)
[2018-09-24] MEDS: GABAPENTIN 100 MG CAP PO SCH ×3 (08:41→21:00)
[2018-09-24] MEDS: HEPARIN SOD (PORCINE) 5000 UNITS/ML VIAL SQ SCH ×2 (09:00→21:00)
[2018-09-24 14:00] VITALS: BP 115/76
--- NOTE | 2018-09-24 15:51 | IPNPDOC ---
Subjective Date Seen The patient was seen on 09/24/18. Subjective Chief Complaint/HPI Patient seen and examined at the bedside. The patient was noted to be agitated yesterday evening and received a dose of Benadryl. She continues to have a sitter at the bedside. Objective Physical Examination General Exam: Positive: Alert, No Acute Distress ENT Exam: Positive: Atraumatic, Other ENT (bitemporal wasting noted. Patient noted to have poor dental hygiene with multiple missing teeth.) Neck Exam: Negative: JVD Chest Exam: Positive: Clear to auscultation, Normal air movement Heart Exam: Positive: Rate Normal, Normal S1, Normal S2 Abdomen Exam: Positive: Soft; Negative: Tenderness Extremity Exam: Positive: Other (right below the knee amputation noted); Negative: Tenderness, Swelling Psych Exam: Negative: Oriented x 3 (patient oriented to person and time, but not place, situation) Assessment /Plan Plan/VTE VTE Prophylaxis Ordered?: Yes Plan Worsening dementia CT Head with chronic ischemic changes, no acute finding No obvious or overt sign of infection; UA negative, CXR with no acute findings, or reversible metabolic encephalopathy Patient's family endorses years of worsening behavior, decreased PO intake Started on Memantine, Donepezil PFS on board for further delineation of disposition Sinus Tachycardia likely 2/2 Agitation, resolved 1/2 Bottles Positive for Gram Positive Cocci--likely contaminant Patient has been afebrile, WBC wnl, no overt source of infection Repeat Blood cultures from 09/20 negative Vanco discontinued Hypertension Patient apparently has not taken medications for years Continue metoprolol for now History of Diabetes Again, the patient has apparently not taken any medications for years Hemoglobin A1c noted to be 8.6% Sliding scale insulin Peripheral Neuropathy Started on Gabapentin Hx of RLE BKA Hx of CVA Currently not on Meds as the patient has refused in the past Deep venous thrombosis (DVT) prophylaxis Heparin SC Dispo--as per PFS VS, I&O, 24H, Kristel Vital Signs/I&O Vital Signs Date Time Temp Pulse Resp B/P (MAP) Pulse Ox O2 Delivery O2 Flow Rate FiO2 09/24/18 15:21 92 103/65 09/23/18 22:00 97.6 18 98 Room Air I&O- Last 24 Hours up to 6 AM 09/24/18 06:00 Intake Total 540 ml Output Total 250 ml Balance 290 ml Laboratory Data 24H LABS Laboratory Tests 2 1/25/19 17:46: Bedside Glucose (Misc Panel) 140H 09/24/18 00:37: Bedside Glucose (Misc Panel) 150H 09/24/18 06:00: Nucleated Red Blood Cells % (auto) 0.0, Anion Gap 8, Glomerular Filtration Rate > 60.0, Blood Urea Nitrogen 19H, Creatinine 0.97, Sodium Level 136, Potassium Level 3.7, Chloride Level 99, Carbon Dioxide Level 29, Calcium Level 9.8 09/24/18 11:53: Bedside Glucose (Misc Panel) 142H CBC/BMP Laboratory Tests 09/24/18 06:00 Red Blood Count 4.33, Mean Corpuscular Volume 91.5, Mean Corpuscular Hemoglobin 30.5, Mean Corpuscular Hemoglobin Concent 33.3, Red Cell Distribution Width 12.0, Calcium Level 9.8 Microbiology Microbiology 09/20/18 Blood Culture - Preliminary, Resulted No Growth after 72 hours. All specime... 09/20/18 Blood Culture - Preliminary, Resulted No Growth after 72 hours. All specime... 09/18/18 Blood Culture - Final, Complete NO GROWTH AFTER 5 DAYS 09/18/18 Blood Culture - Final, Complete Staphylococcus Capitis 09/18/18 Urine Culture - Final, Complete JUSTIN ALFONSO MD Sep 24, 2018 15:51
[2018-09-24] MEDS: RAMELTEON 8 MG TAB (ROZEREM) PO SCH (21:00)
[2018-09-24] MEDS: DONEPEZIL 5 MG TAB PO SCH (21:00)
[2018-09-24 22:00] VITALS: BP 113/67
[2018-09-25 06:00] VITALS: BP 162/90
[2018-09-25] MEDS: METOPROLOL TART 25 MG TABLET PO SCH ×3 (06:00→22:00)
[2018-09-25 06:01] LABS: HEMATOCRIT 35.5 % (36.0-47.0); MEAN CORPUSCULAR HEMOGLOBIN 30.2 pg (27.0-33.0); MEAN CORPUSCULAR HGB CONC 33.8 g/dl (32.0-36.5); MEAN CORPUSCULAR VOLUME 89.4 fl (80.0-96.0); PLATELET COUNT, AUTOMATED 221 10^3/uL (150-450); RED BLOOD COUNT 3.97 10^6/uL (4.00-5.40); WHITE BLOOD COUNT 7.7 10^3/uL (4.0-10.0)
[2018-09-25 06:25] LABS: CALCIUM LEVEL 9.1 MG/DL (8.8-10.2); CREATININE FOR GFR 1.03 MG/DL (0.55-1.30); GLOMERULAR FILTRATION RATE 57.1 (>45); POTASSIUM SERUM 3.6 MEQ/L (3.5-5.1)
[2018-09-25] MEDS: HEPARIN SOD (PORCINE) 5000 UNITS/ML VIAL SQ SCH ×3 (08:26→21:00)
[2018-09-25] MEDS: MEMANTINE 5MG TABLET (NAMENDA) PO SCH ×2 (08:26→08:29)
[2018-09-25] MEDS: GABAPENTIN 100 MG CAP PO SCH ×4 (08:26→21:00)
--- NOTE | 2018-09-25 12:48 | IPNPDOC ---
Subjective Date Seen The patient was seen on 09/25/18. Subjective Chief Complaint/HPI No acute overnight events noted. Objective Physical Examination General Exam: Positive: Alert, Cooperative, No Acute Distress ENT Exam: Positive: Atraumatic, Other ENT (bitemporal wasting noted. Patient noted to have poor dental hygiene with multiple missing teeth.) Neck Exam: Negative: JVD Chest Exam: Positive: Clear to auscultation, Normal air movement Heart Exam: Positive: Rate Normal, Normal S1, Normal S2 Abdomen Exam: Positive: Soft; Negative: Tenderness Extremity Exam: Positive: Other (right below the knee amputation noted); Negative: Tenderness, Swelling Psych Exam: Negative: Oriented x 3 (patient oriented to person and time, but not place, situation) Assessment /Plan Plan/VTE VTE Prophylaxis Ordered?: Yes Plan Worsening dementia CT Head with chronic ischemic changes, no acute finding No obvious or overt sign of infection; UA negative, CXR with no acute findings, or reversible metabolic encephalopathy Patient's family endorses years of worsening behavior, decreased PO intake Started on Memantine, Donepezil PFS on board for further delineation of disposition Sinus Tachycardia likely 2/2 Agitation, resolved 1/2 Bottles Positive for Gram Positive Cocci--likely contaminant Patient has been afebrile, WBC wnl, no overt source of infection Repeat Blood cultures from 09/20 negative Vanco discontinued Hypertension Patient apparently has not taken medications for years Continue metoprolol for now History of Diabetes Again, the patient has apparently not taken any medications for years Hemoglobin A1c noted to be 8.6% Sliding scale insulin Peripheral Neuropathy Started on Gabapentin Hx of RLE BKA Hx of CVA Currently not on Meds as the patient has refused in the past Deep venous thrombosis (DVT) prophylaxis Heparin SC Dispo--as per PFS VS, I&O, 24H, Fishbone Vital Signs/I&O Vital Signs Date Time Temp Pulse Resp B/P (MAP) Pulse Ox O2 Delivery O2 Flow Rate FiO2 09/25/18 06:00 96.9 86 18 162/90 (114) 100 Room Air I&O- Last 24 Hours up to 6 AM 09/25/18 06:00 Intake Total 600 ml Output Total 350 ml Balance 250 ml Laboratory Data 24H LABS Laboratory Tests 2 09/24/18 17:28: Bedside Glucose (Misc Panel) 162H 09/25/18 00:26: Bedside Glucose (Misc Panel) 171H 09/25/18 05:35: Nucleated Red Blood Cells % (auto) 0.0, Anion Gap 7L, Glomerular Filtration Rate 57.1, Blood Urea Nitrogen 26H, Creatinine 1.03, Sodium Level 136, Potassium Lev el 3.6, Chloride Level 100, Carbon Dioxide Level 29, Calcium Level 9.1 09/25/18 06:32: Bedside Glucose (Misc Panel) 184H 09/25/18 11:47: Bedside Glucose (Misc Panel) 147H CBC/BMP Laboratory Tests 09/25/18 05:35 Red Blood Count 3.97 L, Mean Corpuscular Volume 89.4, Mean Corpuscular Hemoglobin 30.2, Mean Corpuscular Hemoglobin Concent 33.8, Red Cell Distribution Width 11.9, Calcium Level 9.1 Microbiology Microbiology 09/20/18 Blood Culture - Final, Complete NO GROWTH AFTER 5 DAYS 09/20/18 Blood Culture - Final, Complete NO GROWTH AFTER 5 DAYS 09/18/18 Blood Culture - Final, Complete NO GROWTH AFTER 5 DAYS 09/18/18 Blood Culture - Final, Complete Staphylococcus Capitis 09/18/18 Urine Culture - Final, Complete JUSTIN ALFONSO MD Sep 25, 2018 12:48
[2018-09-25 14:00] VITALS: BP 147/82
[2018-09-25] MEDS: HALOPERIDOL 5 MG/ML VIAL (J1630) IV PRN (16:49)
[2018-09-25 20:00] VITALS: BP 151/99
[2018-09-25] MEDS: RAMELTEON 8 MG TAB (ROZEREM) PO SCH (21:00)
[2018-09-25] MEDS: DONEPEZIL 5 MG TAB PO SCH (21:00)
[2018-09-25] MEDS: HALOPERIDOL 5 MG/ML VIAL (J1630) IM PRN (22:07)
[2018-09-26 06:00] VITALS: BP 148/97
[2018-09-26] MEDS: METOPROLOL TART 25 MG TABLET PO SCH ×4 (06:00→22:00)
[2018-09-26] MEDS: HEPARIN SOD (PORCINE) 5000 UNITS/ML VIAL SQ SCH ×2 (09:00→19:43)
[2018-09-26] MEDS: GABAPENTIN 100 MG CAP PO SCH ×3 (09:00→19:43)
[2018-09-26] MEDS: MEMANTINE 5MG TABLET (NAMENDA) PO SCH (09:00)
--- NOTE | 2018-09-26 10:36 | IPNPDOC ---
Subjective Date Seen The patient was seen on 09/26/18. Subjective Chief Complaint/HPI Patient seen and examined at the bedside. She continues to require a sitter due to periodic agitation. Otherwise no acute overnight events noted. Objective Physical Examination General Exam: Positive: Alert, Cooperative, No Acute Distress ENT Exam: Positive: Atraumatic, Other ENT (bitemporal wasting noted. Patient noted to have poor dental hygiene with multiple missing teeth.) Neck Exam: Negative: JVD Chest Exam: Positive: Clear to auscultation, Normal air movement Heart Exam: Positive: Rate Normal, Normal S1, Normal S2 Abdomen Exam: Positive: Soft; Negative: Tenderness Extremity Exam: Positive: Other (right below the knee amputation noted); Negative: Tenderness, Swelling Psych Exam: Negative: Oriented x 3 (patient oriented to person and time, but not place, situation) Assessment /Plan Plan/VTE VTE Prophylaxis Ordered?: Yes Plan Worsening dementia CT Head with chronic ischemic changes, no acute finding No obvious or overt sign of infection; UA negative, CXR with no acute findings, or reversible metabolic encephalopathy Patient's family endorses years of worsening behavior, decreased PO intake Started on Memantine, Donepezil PFS on board for further delineation of disposition Sinus Tachycardia likely 2/2 Agitation, resolved 1/2 Bottles Positive for Gram Positive Cocci--likely contaminant Patient has been afebrile, WBC wnl, no overt source of infection Repeat Blood cultures from 09/20 negative Vanco discontinued Hypertension Patient apparently has not taken medications for years Continue metoprolol for now History of Diabetes Again, the patient has apparently not taken any medications for years Hemoglobin A1c noted to be 8.6% Sliding scale insulin Peripheral Neuropathy Started on Gabapentin Hx of RLE BKA Hx of CVA Currently not on Meds as the patient has refused in the past Deep venous thrombosis (DVT) prophylaxis Heparin SC Dispo--as per PFS VS, I&O, 24H, Fishbone Vital Signs/I&O Vital Signs Date Time Temp Pulse Resp B/P (MAP) Pulse Ox O2 Delivery O2 Flow Rate FiO2 09/26/18 06:00 103 148/97 09/26/18 06:00 97.0 19 98 Room Air I&O- Last 24 Hours up to 6 AM 09/26/18 06:00 Intake Total 960 ml Output Total 0 ml Balance 960 ml Laboratory Data 24H LABS Laboratory Tests 2 09/25/18 11:47: Bedside Glucose (Misc Panel) 147H 09/26/18 00:21: Bedside Glucose (Misc Panel) 174H Microbiology Microbiology 09/20/18 Blood Culture - Final, Complete NO GROWTH AFTER 5 DAYS 09/20/18 Blood Culture - Final, Complete NO GROWTH AFTER 5 DAYS 09/18/18 Blood Culture - Final, Complete NO GROWTH AFTER 5 DAYS 09/18/18 Blood Culture - Final, Complete Staphylococcus Capitis 09/18/18 Urine Culture - Final, Complete JUSTIN ALFONSO MD Sep 26, 2018 10:36
[2018-09-26 14:00] VITALS: BP 181/92
[2018-09-26] MEDS: DONEPEZIL 5 MG TAB PO SCH (19:43)
[2018-09-26] MEDS: RAMELTEON 8 MG TAB (ROZEREM) PO SCH (19:43)
[2018-09-26 22:00] VITALS: BP 153/109
[2018-09-27 06:00] VITALS: BP 114/70
[2018-09-27] MEDS: METOPROLOL TART 25 MG TABLET PO SCH ×3 (06:03→20:41)
[2018-09-27 08:27] LABS: HEMATOCRIT 34.5 % (36.0-47.0); HEMOGLOBIN 11.7 g/dl (12.0-15.5); MEAN CORPUSCULAR HEMOGLOBIN 30.4 pg (27.0-33.0); MEAN CORPUSCULAR HGB CONC 33.9 g/dl (32.0-36.5); MEAN CORPUSCULAR VOLUME 89.6 fl (80.0-96.0); PLATELET COUNT, AUTOMATED 238 10^3/uL (150-450); RED BLOOD COUNT 3.85 10^6/uL (4.00-5.40); WHITE BLOOD COUNT 6.5 10^3/uL (4.0-10.0)
[2018-09-27 08:55] LABS: BLOOD UREA NITROGEN 25 MG/DL (7-18); CALCIUM LEVEL 9.1 MG/DL (8.8-10.2); CARBON DIOXIDE LEVEL 30 MEQ/L (21-32); CHLORIDE LEVEL 102 MEQ/L (98-107); CREATININE FOR GFR 0.92 MG/DL (0.55-1.30); GLOMERULAR FILTRATION RATE > 60.0 (>45); GLUCOSE, FASTING 151 MG/DL (70-100); SODIUM LEVEL 139 MEQ/L (136-145)
[2018-09-27] MEDS: MEMANTINE 5MG TABLET (NAMENDA) PO SCH (10:53)
[2018-09-27] MEDS: GABAPENTIN 100 MG CAP PO SCH ×3 (10:53→20:41)
[2018-09-27] MEDS: HEPARIN SOD (PORCINE) 5000 UNITS/ML VIAL SQ SCH ×2 (10:59→20:42)
[2018-09-27 14:00] VITALS: BP 113/69
[2018-09-27 14:40] VITALS: BP 113/69
--- NOTE | 2018-09-27 15:33 | IPN ---
DATE: 09/27/2018 SUBJECTIVE: Patient is seen and examined in the room today. Patient has been a very poor historian. Patient is not able to answer the questions properly. According to the sitter, patient has very minimal oral intake. Patient does not even want to take her Ensure. Patient does demonstrate frequent anxiety and agitation. VITAL SIGNS: Temperature 97.4, pulse 79, respiration rate is 18. Blood pressure 114/70, pulse ox is 97% on room air. GENERAL: The patient is alert, awake, agitated and anxious. HEENT: Normocephalic, atraumatic. Extraocular movements grossly intact. CARDIOVASCULAR: Positive S1, S2, regular rate. LUNGS: Decreased breath sounds. Clear to auscultation ABDOMEN: Soft, nontender. EXTREMITIES: No edema. LABORATORY DATA: WBC 6.1, hemoglobin 11.7, hematocrit 34.5, platelet 238. Sodium 139, potassium 4, chloride 102, carbon dioxide 30, BUN 25, creatinine 0.92. GFR is greater than 60. Fasting glucose 151. Calcium 9.1, magnesium is 2. ASSESSMENT AND PLAN: 1. Severe dementia. Patient has a sitter in place. Patient has Haldol as needed for intermittent agitated episodes. Patient also on Namenda, Aricept. Currently the patient is waiting for placement. 2. Sinus tachycardia. Resolved. It was suspected the patient's tachycardia is secondary to uncontrolled agitation. 3. Possible blood culture contamination. One set of blood cultures from September 18, 2018 demonstrated positive for staphylococcus Capitis. However, on the same day second blood culture was obtained which remained negative. Repeat blood culture was obtained September 20, 2018 showing no growth times two. Patient remains afebrile. Patient does not have leukocytosis. Will continue to monitor the patient. 4. Hypertension. On metoprolol. Blood pressure in satisfactory range. 5. Diabetes. A1c 8.6. Previously patient was placed on insulin, however, patient has refused it. Patient is on consistent carbohydrate diet. Patient is on metformin. 6. Peripheral neuropathy. On gabapentin. 7. History of cerebrovascular accident (CVA). Patient has refused her medication. 8. Right lower extremity below the knee amputation (BKA). 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 Continue wound care. 9. Deep venous thrombosis (DVT) prophylaxis. On LARSISA compressions.
[2018-09-27] MEDS: metFORMIN XR 750 MG TAB PO SCH (18:00)
[2018-09-27] MEDS: RAMELTEON 8 MG TAB (ROZEREM) PO SCH (20:41)
[2018-09-27] MEDS: DONEPEZIL 5 MG TAB PO SCH (20:41)
[2018-09-27 22:00] VITALS: BP 172/74
[2018-09-28 06:00] VITALS: BP 134/68
[2018-09-28 06:55] LABS: HEMATOCRIT 35.1 % (36.0-47.0); MEAN CORPUSCULAR HEMOGLOBIN 30.9 pg (27.0-33.0); MEAN CORPUSCULAR HGB CONC 34.2 g/dl (32.0-36.5); MEAN CORPUSCULAR VOLUME 90.5 fl (80.0-96.0); PLATELET COUNT, AUTOMATED 230 10^3/uL (150-450); RED BLOOD COUNT 3.88 10^6/uL (4.00-5.40); WHITE BLOOD COUNT 6.8 10^3/uL (4.0-10.0)
[2018-09-28 07:24] LABS: BLOOD UREA NITROGEN 26 MG/DL (7-18); CALCIUM LEVEL 9.2 MG/DL (8.8-10.2); CARBON DIOXIDE LEVEL 30 MEQ/L (21-32); CHLORIDE LEVEL 101 MEQ/L (98-107); CREATININE FOR GFR 0.89 MG/DL (0.55-1.30); GLOMERULAR FILTRATION RATE > 60.0 (>45); GLUCOSE, FASTING 127 MG/DL (70-100); MAGNESIUM LEVEL 2.1 MG/DL (1.8-2.4); POTASSIUM SERUM 3.7 MEQ/L (3.5-5.1); SODIUM LEVEL 138 MEQ/L (136-145)
[2018-09-28] MEDS: GABAPENTIN 100 MG CAP PO SCH ×3 (11:36→21:00)
[2018-09-28] MEDS: METOPROLOL TART 25 MG TABLET PO SCH ×2 (11:36→21:00)
[2018-09-28] MEDS: MEMANTINE 5MG TABLET (NAMENDA) PO SCH (11:36)
[2018-09-28] MEDS: HEPARIN SOD (PORCINE) 5000 UNITS/ML VIAL SQ SCH ×2 (11:37→21:00)
[2018-09-28] MEDS: ACETAMINOPHEN TAB 650MG DOSE (2X325MG) PO PRN (12:26)
[2018-09-28 14:00] VITALS: BP 125/60
--- NOTE | 2018-09-28 15:06 | IPNPDOC ---
Text Note Date of Service The patient was seen on 09/28/18. NOTE SUBJECTIVE: Patient is seen and examined in the room today. Patient is poor historian. Per staff, patient has better oral intake today. VITAL SIGNS: Listed below. GENERAL: The patient is alert and awake. Comfortable. HEENT: Normocephalic, atraumatic. Extraocular movements grossly intact. CARDIOVASCULAR: Positive S1, S2, regular rate. LUNGS: Decreased breath sounds. Clear to auscultation ABDOMEN: Soft, nontender. EXTREMITIES: No edema. LABORATORY DATA: Listed below. ASSESSMENT AND PLAN: #. Severe dementia. - Patient has a sitter in place. Patient has Haldol as needed for intermittent agitated episodes. On Namenda and Aricept. Currently the patient is waiting for placement. #. Sinus tachycardia. Resolved. It was suspected the patient's tachycardia is secondary to uncontrolled agitation. #. Possible blood culture contamination. - One set of blood cultures from September 18, 2018 demonstrated positive for staphylococcus Capitis. However, on the same day second blood culture was obtained which remained negative. Repeat blood culture was obtained September 20, 2018 showing no growth times two. Patient remains afebrile. Patient does not have leukocytosis. #. Hypertension. - On metoprolol. Blood pressure in satisfactory range. #. Diabetes. - A1c 8.6. Previously patient was placed on insulin, however, patient refused it. Patient is on consistent carbohydrate diet. Patient started on metformin. #. Peripheral neuropathy. On gabapentin. #. History of cerebrovascular accident (CVA). - Starts ASA and lipitor. #. Right lower extremity below the knee amputation (BKA). - Patient also has diabetic ulcer of the left lower extremity. Continue wound c are. #. Deep venous thrombosis (DVT) prophylaxis. On LARISSA compressions. VS,Fishbone, I+O VS, Fishbone, I+O Laboratory Tests 09/28/18 06:16 Red Blood Count 3.88 L, Mean Corpuscular Volume 90.5, Mean Corpuscular Hemoglobin 30.9, Mean Corpuscular Hemoglobin Concent 34.2, Red Cell Distribution Width 12.0, Calcium Level 9.2 Vital Signs Date Time Temp Pulse Resp B/P (MAP) Pulse Ox O2 Delivery O2 Flow Rate FiO2 09/28/18 14:00 96.4 66 16 125/60 (81) 98 09/28/18 06:00 Room Air I&O- Last 24 Hours up to 6 AM 09/28/18 06:00 Intake Total 960 ml Output Total 0 ml Balance 960 ml CARMEN MENDEZ DO Sep 28, 2018 15:06
[2018-09-28] MEDS: ASPIRIN 81 MG ENTERIC TAB PO SCH (18:08)
[2018-09-28] MEDS: metFORMIN XR 750 MG TAB PO SCH (18:09)
[2018-09-28] MEDS: DONEPEZIL 5 MG TAB PO SCH (21:00)
[2018-09-28] MEDS: RAMELTEON 8 MG TAB (ROZEREM) PO SCH (21:00)
[2018-09-28] MEDS: ATORVASTATIN 20 MG TAB PO SCH (21:00)
[2018-09-28 22:00] VITALS: BP 132/75
[2018-09-28] MEDS: HALOPERIDOL 5 MG/ML VIAL (J1630) IM PRN (22:37)
[2018-09-29] MEDS: HALOPERIDOL 5 MG/ML VIAL (J1630) IM PRN (00:57)
[2018-09-29] MEDS: HEPARIN SOD (PORCINE) 5000 UNITS/ML VIAL SQ SCH ×2 (09:00→21:00)
[2018-09-29] MEDS: GABAPENTIN 100 MG CAP PO SCH ×3 (09:00→21:00)
[2018-09-29] MEDS: METOPROLOL TART 25 MG TABLET PO SCH ×2 (12:44→21:00)
[2018-09-29] MEDS: MEMANTINE 5MG TABLET (NAMENDA) PO SCH (12:44)
[2018-09-29] MEDS: ASPIRIN 81 MG ENTERIC TAB PO SCH (12:44)
[2018-09-29] MEDS: ACETAMINOPHEN TAB 650MG DOSE (2X325MG) PO PRN (12:45)
[2018-09-29] MEDS ORDERED: ARIC1TAB PO (17:46)
[2018-09-29] MEDS ORDERED: GLUCTAB2 PO (17:46)
[2018-09-29] MEDS ORDERED: METO1TAB87 PO (17:46)
[2018-09-29] MEDS ORDERED: GABA-1171 PO (17:46)
[2018-09-29] MEDS ORDERED: ASPI81TAEC PO (17:46)
[2018-09-29] MEDS ORDERED: ATOR1TAB21 PO (17:46)
[2018-09-29] MEDS ORDERED: MEMA1TAB PO (17:46)
[2018-09-29] MEDS ORDERED: ROZE8TAB16 PO (17:46)
--- NOTE | 2018-09-29 17:54 | IPNPDOC ---
Text Note Date of Service The patient was seen on 09/29/18. NOTE SUBJECTIVE: Patient is seen and examined today. Patient is poor historian. Patient had big family union in the afternoon but patient could not recall the event few hours later. Patient does not remember what she had for breakfast or lunch. Patient denies acute complaint. VITAL SIGNS: Listed below. GENERAL: The patient is alert and awake. Comfortable. Not oriented. HEENT: Normocephalic, atraumatic. Extraocular movements grossly intact. CARDIOVASCULAR: Positive S1, S2, regular rate. LUNGS: Decreased breath sounds. Clear to auscultation ABDOMEN: Soft, nontender. EXTREMITIES: No edema. LABORATORY DATA: Listed below. ASSESSMENT AND PLAN: #. Severe dementia. - Patient has a sitter in place. Patient has Haldol as needed for intermittent agitated episodes. On Namenda and Aricept. - Anticipate placement on 09/30/18. #. Sinus tachycardia. Resolved. It was suspected the patient's tachycardia is secondary to uncontrolled agitation. #. Possible blood culture contamination. - One set of blood cultures from September 18, 2018 demonstrated positive for staphylococcus Capitis. However, on the same day second blood culture was obtained which remained negative. Repeat blood culture was obtained September 20, 2018 showing no growth times two. Patient remains afebrile. Patient does not have leukocytosis. #. Hypertension. - On metoprolol. Blood pressure in satisfactory range. #. Diabetes. - A1c 8.6. Previously patient was placed on insulin, however, patient refused it. Patient is on consistent carbohydrate diet. Patient started on metformin. #. Peripheral neuropathy. On gabapentin. #. History of cerebrovascular accident (CVA). - Starts ASA and lipitor. #. Right lower extremity below the knee amputation (BKA). - Patient also has diabetic ulcer of the left lower extremity. Continue wound care. #. Deep venous thrombosis (DVT) prophylaxis. On LARISSA compressions. VS,Fishbone, I+O VS, Fishbone, I+O Vital Signs Date Time Temp Pulse Resp B/P (MAP) Pulse Ox O2 Delivery O2 Flow Rate FiO2 09/29/18 12:44 72 130/68 09/29/18 06:00 97.0 16 96 09/28/18 06:00 Room Air I&O- Last 24 Hours up to 6 AM 09/29/18 06:00 Intake Total 240 ml Output Total 200 ml Balance 40 ml CARMEN MENDEZ DO Sep 29, 2018 17:54
[2018-09-29] MEDS: metFORMIN XR 750 MG TAB PO SCH (18:00)
[2018-09-29] MEDS: ATORVASTATIN 20 MG TAB PO SCH (21:00)
[2018-09-29] MEDS: DONEPEZIL 5 MG TAB PO SCH (21:00)
[2018-09-29] MEDS: RAMELTEON 8 MG TAB (ROZEREM) PO SCH (21:00)
[2018-09-30 06:00] VITALS: BP 139/79
[2018-09-30 06:03] LABS: HEMATOCRIT 37.3 % (36.0-47.0); HEMOGLOBIN 12.6 g/dl (12.0-15.5); MEAN CORPUSCULAR HEMOGLOBIN 30.2 pg (27.0-33.0); MEAN CORPUSCULAR HGB CONC 33.8 g/dl (32.0-36.5); MEAN CORPUSCULAR VOLUME 89.4 fl (80.0-96.0); PLATELET COUNT, AUTOMATED 255 10^3/uL (150-450); RED BLOOD COUNT 4.17 10^6/uL (4.00-5.40); WHITE BLOOD COUNT 7.2 10^3/uL (4.0-10.0)
[2018-09-30 06:23] LABS: BLOOD UREA NITROGEN 21 MG/DL (7-18); CALCIUM LEVEL 9.2 MG/DL (8.8-10.2); CARBON DIOXIDE LEVEL 31 MEQ/L (21-32); CHLORIDE LEVEL 99 MEQ/L (98-107); CREATININE FOR GFR 0.82 MG/DL (0.55-1.30); GLOMERULAR FILTRATION RATE > 60.0 (>45); GLUCOSE, FASTING 164 MG/DL (70-100); MAGNESIUM LEVEL 2.1 MG/DL (1.8-2.4); POTASSIUM SERUM 3.8 MEQ/L (3.5-5.1); SODIUM LEVEL 136 MEQ/L (136-145)
[2018-09-30] MEDS: MEMANTINE 5MG TABLET (NAMENDA) PO SCH (09:00)
[2018-09-30] MEDS: METOPROLOL TART 25 MG TABLET PO SCH ×2 (09:00→21:00)
[2018-09-30] MEDS: GABAPENTIN 100 MG CAP PO SCH ×3 (09:00→21:00)
[2018-09-30] MEDS: HEPARIN SOD (PORCINE) 5000 UNITS/ML VIAL SQ SCH ×2 (09:00→21:00)
[2018-09-30] MEDS: ASPIRIN 81 MG ENTERIC TAB PO SCH (09:00)
[2018-09-30] MEDS ORDERED: MEMA1TAB PO (11:55)
[2018-09-30] MEDS ORDERED: GABA-1171 PO (11:55)
[2018-09-30] MEDS ORDERED: ROZE8TAB16 PO (11:55)
[2018-09-30] MEDS ORDERED: GLUCTAB2 PO (11:55)
[2018-09-30] MEDS ORDERED: ARIC1TAB PO (11:55)
[2018-09-30] MEDS ORDERED: ATOR1TAB21 PO (11:55)
[2018-09-30] MEDS ORDERED: METO1TAB87 PO (11:55)
[2018-09-30] MEDS ORDERED: ASPI81TAEC PO (11:55)
--- NOTE | 2018-09-30 14:46 | IPNPDOC ---
Text Note Date of Service The patient was seen on 09/30/18. NOTE SUBJECTIVE: Patient is seen and examined today. Patient is poor historian. Patient denies acute complaint. VITAL SIGNS: Listed below. GENERAL: The patient is alert and awake. Comfortable. Not oriented. HEENT: Normocephalic, atraumatic. Extraocular movements grossly intact. CARDIOVASCULAR: Positive S1, S2, regular rate. LUNGS: Decreased breath sounds. Clear to auscultation ABDOMEN: Soft, nontender. EXTREMITIES: No edema. LABORATORY DATA: Listed below. ASSESSMENT AND PLAN: #. Severe dementia. - Patient has a sitter in place. Patient has Haldol as needed for intermittent agitated episodes. On Namenda and Aricept. - Initially patient had transfer setup [facility] on 09/30/18. However, family later decided to bring patient home and they are not ready for the the patient yet. Discharge is postponed. #. Sinus tachycardia. Resolved. It was suspected the patient's tachycardia is secondary to uncontrolled agitation. #. Possible blood culture contamination. - One set of blood cultures from September 18, 2018 demonstrated positive for stap hylococcus Capitis. However, on the same day second blood culture was obtained which remained negative. Repeat blood culture was obtained September 20, 2018 showing no growth times two. Patient remains afebrile. Patient does not have leukocytosis. #. Hypertension. - On metoprolol. Blood pressure in satisfactory range. #. Diabetes. - A1c 8.6. Previously patient was placed on insulin, however, patient refused it. Patient is on consistent carbohydrate diet. Patient started on metformin. #. Peripheral neuropathy. On gabapentin. #. History of cerebrovascular accident (CVA). - Starts ASA and lipitor. #. Right lower extremity below the knee amputation (BKA). - Patient also has diabetic ulcer of the left lower extremity. Continue wound care. - Need to establish with wound care clinic in [place] in the outpatient setting. #. Deep venous thrombosis (DVT) prophylaxis. On LARISSA compressions. VS,Fishbone, I+O VS, Fishbone, I+O Laboratory Tests 09/30/18 05:48 Red Blood Count 4.17, Mean Corpuscular Volume 89.4, Mean Corpuscular Hemoglobin 30.2, Mean Corpuscular Hemoglobin Concent 33.8, Red Cell Distribution Width 11.9, Calcium Level 9.2 Vital Signs Date Time Temp Pulse Resp B/P (MAP) Pulse Ox O2 Delivery O2 Flow Rate FiO2 09/30/18 06:00 98.9 88 18 139/79 (99) 97 09/28/18 06:00 Room Air I&O- Last 24 Hours up to 6 AM 09/30/18 06:00 Intake Total 660 ml Output Total 500 ml Balance 160 ml CARMEN MENDEZ DO Sep 30, 2018 14:46
[2018-09-30] MEDS: metFORMIN XR 750 MG TAB PO SCH (18:00)
[2018-09-30] MEDS: HALOPERIDOL 5 MG/ML VIAL (J1630) IM PRN (18:27)
[2018-09-30] MEDS: ATORVASTATIN 20 MG TAB PO SCH (21:00)
[2018-09-30] MEDS: RAMELTEON 8 MG TAB (ROZEREM) PO SCH (21:00)
[2018-09-30] MEDS: DONEPEZIL 5 MG TAB PO SCH (21:00)
[2018-10-01 06:28] LABS: HEMATOCRIT 36.6 % (36.0-47.0); HEMOGLOBIN 12.3 g/dl (12.0-15.5); MEAN CORPUSCULAR HEMOGLOBIN 30.5 pg (27.0-33.0); MEAN CORPUSCULAR HGB CONC 33.6 g/dl (32.0-36.5); MEAN CORPUSCULAR VOLUME 90.8 fl (80.0-96.0); PLATELET COUNT, AUTOMATED 253 10^3/uL (150-450); RED BLOOD COUNT 4.03 10^6/uL (4.00-5.40); WHITE BLOOD COUNT 7.3 10^3/uL (4.0-10.0)
[2018-10-01] MEDS: HALOPERIDOL 5 MG/ML VIAL (J1630) IM PRN (06:40)
[2018-10-01 06:53] LABS: BLOOD UREA NITROGEN 25 MG/DL (7-18); CALCIUM LEVEL 9.1 MG/DL (8.8-10.2); CARBON DIOXIDE LEVEL 31 MEQ/L (21-32); CHLORIDE LEVEL 101 MEQ/L (98-107); CREATININE FOR GFR 0.89 MG/DL (0.55-1.30); GLOMERULAR FILTRATION RATE > 60.0 (>45); GLUCOSE, FASTING 212 MG/DL (70-100); POTASSIUM SERUM 3.6 MEQ/L (3.5-5.1); SODIUM LEVEL 138 MEQ/L (136-145)
[2018-10-01] MEDS: HEPARIN SOD (PORCINE) 5000 UNITS/ML VIAL SQ SCH (09:00)
[2018-10-01] MEDS: ACETAMINOPHEN TAB 650MG DOSE (2X325MG) PO PRN (10:06)
[2018-10-01] MEDS: GABAPENTIN 100 MG CAP PO SCH (10:07)
[2018-10-01] MEDS: ASPIRIN 81 MG ENTERIC TAB PO SCH (10:08)
[2018-10-01] MEDS: MEMANTINE 5MG TABLET (NAMENDA) PO SCH (10:09)
[2018-10-01 13:35] VITALS: BP 140/83
[2018-10-01] MEDS: METOPROLOL TART 25 MG TABLET PO SCH (13:35)
--- NOTE | 2018-10-03 18:24 | DSES ---
DATE OF ADMISSION: 09/18/2018 DATE OF DISCHARGE: 10/01/2018 DISCHARGE DIAGNOSES: 1. Severe dementia. 2. Sinus tachycardia. 3. Hypertension. 4. Diabetes. 5. Peripheral neuropathy. 6. History of CVA. 7. Right below knee amputation. HOSPITALIZATION COURSE: The patient is a 68-year-old female who was brought to [facility] on 09/18/2018 by her for agitated behavior and worsening mentation. Patient was admitted under the hospitalist service for altered mental status in the setting of dementia. Diagnostic workup was performed to rule out reversible causes. Due to patient's aggression, multiple medications had to be given to the patient to control the symptoms and a sitter ordered. Later, patient was found to have persistent tachycardia with negative troponin. Medication given to the patient for symptomatic control. Later, all the imaging studies came back negative. Diagnostic workup including laboratory tests all came back negative. Patient and family services (PFS) is on board for disposition planning. Later, patient has been accepted to a senior care in [place], [place], however prior to discharge family members decided to bring the patient home and discharge was postponed and patient's family member is setting up for the transport and patient finally was discharged on 10/01/2018 with recommendation to followup with primary care provider in 1 week. VITAL SIGNS: On the day of discharge: Temperature 98.9, pulse 88, respiratory rate 18, blood pressure 139/79, pulse oximetry 97% in room air. Most recent laboratory data showed WBC 7.3, hemoglobin 12.3, hematocrit 36.6, platelet count 253, sodium 138, potassium 3.7, chloride 101, carbon dioxide 31, BUN 25, creatinine 0.89, GFR greater than 60, fasting glucose 212, calcium 9.1, magnesium 2. Urine toxicology on 09/18/2018 is negative. Blood alcohol level is negative. Syphilis serology is negative. MICROBIOLOGY: Blood cultures from 09/18/2018, one set positive for Staphylococcus capitus (most likely contamination). Another set of blood cultures from 09/18/2018 showed no growth after 5 days. Blood culture from 09/20/2018 showed no growth after 5 days times two sets. Urine culture from 09/18/2018 negative. IMAGING STUDIES: Chest x-ray 09/18/2018 showed some linear atelectatic change at the left base. Bowel loops gas-filled and somewhat distended underneath the left diaphragm and mid upper abdomen. A V/Q scan on 09/20/2018 showed no evidence to suggest pulmonary embolism. Patient was not able to perform the ventilation portion of the examination. DISCHARGE MEDICATIONS: - aspirin 81 mg by mouth daily - atorvastatin 40 mg by mouth nightly - Aricept 5 mg by mouth nightly - gabapentin 100 mg by mouth three times a day - memantine 5 mg by mouth daily - metformin 750 mg by mouth daily - metoprolol tartrate 75 mg by mouth twice a day - Rozerem 8 mg by mouth nightly DISCHARGE INSTRUCTIONS: Discontinue lines. Discharge home. Activity as tolerated. Low salt diet as tolerated. Patient to followup with primary care provider in 1 week. DISCHARGE CONDITION: Fair. DISCHARGE TIME: Greater than 30 minutes.
== END 2018-10-01 14:00 | disposition home health service (06) | DRG 884 ==
LOC: EDBD 16:42 → M ED 16:42 → M ED INP 22:48 → M PCU 09-19 02:28 → M MS5PR 09-22 03:30
PROVIDERS: ADMIT Internal Medicine; ATTEND Internal Medicine
DX: F03.91 Unspecified dementia, unspecified severity, with behavioral disturbance (principal); L97.929 Non-pressure chronic ulcer of unspecified part of left lower leg with unspecified severity; E11.42 Type 2 diabetes mellitus with diabetic polyneuropathy; E11.622 Type 2 diabetes mellitus with other skin ulcer; Z91.14 Patient's other noncompliance with medication regimen; K21.9 Gastro-esophageal reflux disease without esophagitis; E78.5 Hyperlipidemia, unspecified; Z88.2 Allergy status to sulfonamides; Z88.5 Allergy status to narcotic agent; R00.0 Tachycardia, unspecified; I10 Essential (primary) hypertension; Z89.511 Acquired absence of right leg below knee; Z86.73 Personal history of transient ischemic attack (TIA), and cerebral infarction without residual deficits; Z66 Do not resuscitate

== ENCOUNTER 2018-10-04 12:42 | Emergency (ER) | payer MEDICARE, MEDICAID ==
[~2018-10-04] VITALS: Ht 154.9 cm; Wt 55.8 kg
[~2018-10-04 12:42] MED LIST changes: +ACET-683 PO; +ARIC1TAB PO; +ASPI81TAEC PO; +ATOR1TAB21 PO; +GABA-1171 PO; +GLUCTAB2 PO; +MEMA1TAB PO; +METO1TAB87 PO; +ROZE8TAB16 PO
[2018-10-04 13:26] LABS: BASO % 0.4 % (0.0-1.0); EOS # 0.2 10^3/uL (0.0-0.50); EOS % 1.8 % (0.0-3.0); HEMATOCRIT 37.8 % (36.0-47.0); HEMOGLOBIN 12.5 g/dl (12.0-15.5); LYMPH # 2.9 10^3/uL (1.5-4.5); LYMPH % 29.2 % (24.0-44.0); MEAN CORPUSCULAR HEMOGLOBIN 30.6 pg (27.0-33.0); MEAN CORPUSCULAR HGB CONC 33.1 g/dl (32.0-36.5); MEAN CORPUSCULAR VOLUME 92.6 fl (80.0-96.0); MONO # 0.5 10^3/uL (0.0-0.8); MONO % 5.4 % (0.0-5.0); NEUTROPHILS # 6.3 10^3/uL (1.8-7.7); NEUTROPHILS % 62.9 % (36.0-66.0); PLATELET COUNT, AUTOMATED 224 10^3/uL (150-450); RED BLOOD COUNT 4.08 10^6/uL (4.00-5.40)
[2018-10-04 14:11] LABS: BLOOD UREA NITROGEN 33 MG/DL (7-18); CALCIUM LEVEL 8.8 MG/DL (8.8-10.2); CARBON DIOXIDE LEVEL 31 MEQ/L (21-32); CHLORIDE LEVEL 103 MEQ/L (98-107); CPK CREATINE PHOSPHOKINASE 63 U/L (26-192); CREATININE FOR GFR 1.15 MG/DL (0.55-1.30); GLOMERULAR FILTRATION RATE 50.3 (>45); GLUCOSE, FASTING 151 MG/DL (70-100); MB/CK RELATIVE INDEX 3.65 (< OR =4); SODIUM LEVEL 139 MEQ/L (136-145); TROPONIN I < 0.02 NG/ML (< 0.10)
[2018-10-04 16:29] VITALS: BP 134/66
--- NOTE | 2018-10-05 08:55 | ECGEPIP ---
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
== END 2018-10-04 16:30 | disposition home or self-care (01) ==
LOC: EDBD 12:42 → M ED 12:42
DX: R55 Syncope and collapse (principal); F03.90 Unspecified dementia, unspecified severity, without behavioral disturbance, psychotic disturbance, mood disturbance, and anxiety

== ENCOUNTER 2018-10-06 17:57 | Observation (INO) | payer MEDICARE, MEDICAID ==
[~2018-10-06] VITALS: Ht 172.7 cm; Wt 55.8 kg
[2018-10-06] MEDS ORDERED: HALOPERIDOL 5 MG/ML VIAL (J1630) IM ONE (19:45)
[2018-10-06] MEDS ORDERED: LORazepam 2 MG/ML VIAL (J2060) IM ONE (19:45)
[2018-10-06] MEDS ORDERED: diphenhydrAMINE INJ 50MG/ML VIAL (J1200) IM ONE (19:45)
[2018-10-06] MEDS ORDERED: ACET500T15 PO (19:47)
[2018-10-06] MEDS ORDERED: MEMA1TAB PO (19:47)
[2018-10-06] MEDS ORDERED: ARIC1TAB PO (19:47)
[2018-10-06] MEDS ORDERED: METF750T PO (19:47)
[2018-10-06] MEDS ORDERED: ASPI81TAEC PO (19:47)
[2018-10-06] MEDS ORDERED: METO25TA4 PO (19:47)
[2018-10-06] MEDS ORDERED: ATOR40TA75 PO (19:47)
[2018-10-06] MEDS ORDERED: ROZE8TAB16 PO (19:47)
[2018-10-06] MEDS ORDERED: GABA-1171 PO (19:47)
--- NOTE | 2018-10-06 21:05 | ECGEPIP ---
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
[2018-10-06 21:08] LABS: BASO % 0.3 % (0.0-1.0); EOS # 0.2 10^3/uL (0.0-0.50); EOS % 1.7 % (0.0-3.0); HEMATOCRIT 36.1 % (36.0-47.0); HEMOGLOBIN 12.2 g/dl (12.0-15.5); LYMPH # 2.1 10^3/uL (1.5-4.5); LYMPH % 23.2 % (24.0-44.0); MEAN CORPUSCULAR HGB CONC 33.8 g/dl (32.0-36.5); MEAN CORPUSCULAR VOLUME 91.6 fl (80.0-96.0); MONO # 0.5 10^3/uL (0.0-0.8); MONO % 5.9 % (0.0-5.0); NEUTROPHILS # 6.3 10^3/uL (1.8-7.7); NEUTROPHILS % 68.5 % (36.0-66.0); PLATELET COUNT, AUTOMATED 217 10^3/uL (150-450); RED BLOOD COUNT 3.94 10^6/uL (4.00-5.40); WHITE BLOOD COUNT 9.2 10^3/uL (4.0-10.0)
[2018-10-06 21:42] LABS: ACETAMINOPHEN LEVEL < 2.0 UG/ML (10.0-30.0); ALBUMIN 3.5 GM/DL (3.2-5.2); ALT/SGPT 17 U/L (12-78); BILIRUBIN,DIRECT 0.1 MG/DL (0.0-0.2); BILIRUBIN,TOTAL 0.3 MG/DL (0.2-1.0); BLOOD UREA NITROGEN 39 MG/DL (7-18); CALCIUM LEVEL 8.7 MG/DL (8.8-10.2); CARBON DIOXIDE LEVEL 28 MEQ/L (21-32); CHLORIDE LEVEL 107 MEQ/L (98-107); CPK CREATINE PHOSPHOKINASE 207 U/L (26-192); CREATININE FOR GFR 0.94 MG/DL (0.55-1.30); GLOMERULAR FILTRATION RATE > 60.0 (>45); GLUCOSE, FASTING 202 MG/DL (70-100); MB/CK RELATIVE INDEX 2.61 (< OR =4); POTASSIUM SERUM 4.4 MEQ/L (3.5-5.1); SALICYLATE LEVEL < 1.7 MG/DL (5.0-30.0); SODIUM LEVEL 141 MEQ/L (136-145); TOTAL PROTEIN 6.7 GM/DL (6.4-8.2); TROPONIN I < 0.02 NG/ML (< 0.10)
[2018-10-06] MEDS ORDERED: LORazepam 2 MG/ML VIAL (J2060) IV STA (22:18)
--- NOTE | 2018-10-06 23:24 | REPVR ---
EXAM: CT Head Without Contrast EXAM DATE/TIME: 10/06/2018 10:02 PM CLINICAL HISTORY: 68 years old, female; Injury or trauma; Fall; Additional info: Altered mental status TECHNIQUE: Axial computed tomography images of the head/brain without contrast. All CT scans at this facility use at least one of these dose optimization techniques: automated exposure control; mA and/or kV adjustment per patient size (includes targeted exams where dose is matched to clinical indication); or iterative reconstruction. COMPARISON: CT Head without contrast 09/18/2018 6:39 PM FINDINGS: Brain: There is parenchymal volume loss. White matter changes are demonstrated in the subcortical, centrum semiovale and periventricular white matter consistent with small vessel white matter angiopathic gliosis. Ventricles: The degree of ventricular dilatation is normal for age. No pathologic enlargement demonstrated. Bones/joints: Unremarkable. No acute fracture. Sinuses: Visualized sinuses are unremarkable. No acute sinusitis. Mastoid air cells: Visualized mastoid air cells are unremarkable. No mastoid effusion. Soft tissues: Unremarkable. IMPRESSION: There is parenchymal volume loss. White matter changes are demonstrated in the subcortical, centrum semiovale and periventricular white matter consistent with small vessel white matter angiopathic gliosis. No acute intracranial findings. Electronically signed by: Jareth Iglesias On 10/06/2018 23:24:18 PM
[2018-10-07] MEDS ORDERED: DEXTROSE 50% 50 ML SYRINGE IV PRN
[2018-10-07] MEDS ORDERED: GLUCOSE 4 GM CHEW TABLET PO PRN
[2018-10-07] MEDS ORDERED: GLUCAGON FOR INJ 1 MG VIAL (J1610) SC PRN
[2018-10-07] MEDS: NS 1,000 ML IV SCH ×2 (00:15→18:15)
--- NOTE | 2018-10-07 00:39 | HPEPDOC ---
[facility] Medical History & Physical Date of Admission Oct 07, 2018 Other Provider Admitting/dictating: Glory Bills M.D. Attending Physician: OLIVER ECKERT MD History and Physical CHIEF COMPLAINT: Fall HISTORY OF PRESENT ILLNESS: Patient is a 68-year-old female. She has medical history significant for diabetes, GERD, hyperlipidemia, advanced dementia, questionable CVA in the past. Patient is not a good historian. History is as reported by ER attending. No family member at bedside. Patient was earlier evaluated for agitation and worsening mental status last month and the plan was to transition her to a intermediate. However, her children declined, instead took her to stay with her . With this episode, reports that patient that is his tried to get up from her wheelchair and fell face forward. He activated the EMS and patient was brought in to the emergency room. Patient was fully evaluated in the emergency room with unremarkable imaging and labs but , refused to take her back home as he is unable to provide adequate care for her. He is requesting that she be transferred to a intermediate. There is no mention of nausea, vomiting, fever or chills. No mention of shortness of breath or cough. Patient is said to be at her baseline clinical status. She was giving Ativan and Haldol as patient was with agitation and belligerent. PAST MEDICAL HISTORY: Per HPI PAST SURGICAL HISTORY: 1. Right BKA. No other surgical history is obtainable at this time. SOCIAL HISTORY: Unobtainable FAMILY HISTORY: Unobtainable ALLERGIES: Please see below. REVIEW OF SYSTEMS: Unobtainable HOME MEDICATIONS: Please see below. PHYSICAL EXAMINATION: VITAL SIGNS: Temperature 97.5, pulse 96, respiratory rate 18, blood pressure 152/89, pulse oximetry 100% on room air. GENERAL APPEARANCE: Elderly woman, lying calmly in bed asleep but arousable, not in any apparent distress. She is not pale, anicteric and afebrile HEENT: Atraumatic. Neck: Supple. LUNGS: Clear to auscultation bilaterally. CARDIOVASCULAR: S1 and 2 heard, no murmurs, rubs or gallops. ABDOMEN: Obese, soft, not tender, not distended. Bowel sounds normoactive. MUSCULOSKELETAL: Apparently within normal limits. EXTREMITIES: No pedal edema, 2+ bilateral pedal pulses noted. NEUROLOGICAL: Asleep/readily arousable LABORATORY DATA: See below. IMAGING: Chest x-ray: No acute process. CT brain: Parenchymal volume loss, no acute intracranial findings. MICROBIOLOGY: Please see below. ASSESSMENT: Patient is a 68-year-old female with advanced dementia, diabetes, right below the knee amputation brought in after a fall while transferred to get off her wheelchair. Patient received Haldol and Ativan to help control her agitation was seen asleep but arousable on exam, CT head negative for any acute event. Chest x-ray no acute findings. Labs unremarkable. Patient's has requested that she be transitioned to a intermediate as he is unable to provide her with adequate care. DIAGNOSES: 1. Advanced dementia. 2. Patient will need social placement. . PLAN: 1. I will admit patient to the medical floor under care of Dr. Eckert. 2. Case management/social services aide consult placed. 3. Diabetes: We'll continue with insulin sliding scale every before meals and at bedtime 4. Diet consistent cabs. 5. We will resume her outpatient medications as soon as reconciled. 6. GI prophylaxis not indicated at this time. 7. DVT prophylaxis subcutaneous heparin. 8. Further management will be per patient's clinical course. Vital Signs Vital Signs Date Time Temp Pulse Resp B/P (MAP) Pulse Ox O2 Delivery O2 Flow Rate FiO2 10/06/18 23:00 152/89 (110) 10/06/18 22:57 96 100 Room Air 10/06/18 22:31 97.5 10/06/18 22:00 16 Laboratory Data Labs 24H Laboratory Tests 2 10/06/18 20:53: Immature Granulocyte % (Auto) 0.4, White Blood Count 9.2, Red Blood Count 3.94L, Hemoglobin 12.2, Hematocrit 36.1, Mean Corpuscular Volume 91.6, Mean Corpuscular Hemoglobin 31.0, Mean Corpuscular Hemoglobin Concent 33.8, Red Cell Distribution Width 12.2, Platelet Count 217, Neutrophils (%) (Auto) 68.5H, Lymphocytes (%) (Auto) 23.2L, Monocytes (%) (Auto) 5.9H, Eosinophils (%) (Auto) 1.7, Basophils (%) (Auto) 0.3, Neutrophils # (Auto) 6.3, Lymphocytes # (Auto) 2.1, Monocytes # (Auto) 0.5, Eosinophils # (Auto) 0.2, Basophils # (Auto) 0.0, Nucleated Red Blood Cells % (auto) 0.0, Urine Color YELLOW, Urine Appearance CLEAR, Urine pH 5.0, Urine Specific [place] 1.023, Urine Protein 1+H, Urine Glucose (UA) 1+H, Urine Ketones TRACEH, Urine Blood 1+H, Urine Nitrite NEGATIVE, Urine Bilirubin NEGATIVE, Urine Urobilinogen 4.0H, Urine Leukocyte Esterase TRACEH, Urine WBC (Auto) 35H, Urine RBC (Auto) 10H, Urine Hyaline Casts (Auto) 0, Urine Bacteria (Auto) 1+H, Urine Squamous Epithelial Cells 1, Urine Sperm (Auto) , Anion Gap 6L, Glomerular Filtration Rate > 60.0, Lactic Acid Level 1.7, Calcium Level 8.7L, Aspartate Amino Transf (AST/SGOT) 23, Alanine Aminotransferase (ALT/SGPT) 17, Alkaline Phosphatase 121H, Total Bilirubin 0.3, Direct Bilirubin 0.1, Ammonia 19, Total Creatine Kinase 207#H, Creatine Kinase MB 5.0H, Creatine Kinase MB Relative Index 2.61, Troponin I < 0.02, Total Protein 6.7, Albumin 3.5, Albumin/Globulin Ratio 1.09, Thyroid Stimulating Hormone (TSH) 1.190, Salicylates Level < 1.7L, Acetaminophen Level < 2.0L CBC/BMP Laboratory Tests 10/06/18 20:53 Red Blood Count 3.94 L, Mean Corpuscular Volume 91.6, Mean Corpuscular Hemoglobin 31.0, Mean Corpuscular Hemoglobin Concent 33.8, Red Cell Distribution Width 12.2, Neutrophils (%) (Auto) 68.5 H, Lymphocytes (%) (Auto) 23.2 L, Monocytes (%) (Auto) 5.9 H, Eosinophils (%) (Auto) 1.7, Basophils (%) (Auto) 0.3, Neutrophils # (Auto) 6.3, Lymphocytes # (Auto) 2.1, Monocytes # (Auto) 0.5, Eosinophils # (Auto) 0.2, Basophils # (Auto) 0.0 Microbiology Microbiology 10/06/18 Blood Culture, Received Pending 10/06/18 Blood Culture, Received Pending 2/7/19 Urine Culture, Received Pending Home Medications Scheduled Aspirin (Aspirin EC) 81 Mg Tabec, 81 MG PO DAILY Atorvastatin Calcium (Atorvastatin Calcium) 40 Mg Tab, 40 MG PO QHS Donepezil Hydrochloride (Aricept) 5 Mg Tab, 5 MG PO QHS Gabapentin (Gabapentin) 100 Mg Cap, 100 MG PO TID Memantine Hydrochloride (Memantine HCl) 5 Mg Tab, 5 MG PO DAILY Metformin Hydrochloride (Metformin HCl ER) 750 Mg Tab, 750 MG PO DAILY Metoprolol Tartrate (Metoprolol Tartrate) 25 Mg Tab, 25 MG PO BID Ramelteon (Rozerem) 8 Mg Tab, 8 MG PO QHS Scheduled PRN Acetaminophen (Acetaminophen) 500 Mg Tab, 1,000 MG PO Q8H PRN for PAIN Allergies Coded Allergies: Codeine (Unverified Allergy, Unknown, 10/06/18) shakiness Sulfate (Unverified Allergy, Unknown, 10/04/18) GLORY BILLS MD Oct 07, 2018 00:24
[2018-10-07] MEDS: ATORVASTATIN 20 MG TAB PO SCH ×2 (00:58→20:24)
[2018-10-07] MEDS: DONEPEZIL 5 MG TAB PO SCH ×2 (00:58→20:25)
[2018-10-07] MEDS: METOPROLOL TART 25 MG TABLET PO SCH ×3 (00:59→20:25)
[2018-10-07] MEDS: HumaLOG INSULIN (NovoLOG) PER UNIT SC SCH ×5 (00:59→20:25)
[2018-10-07] MEDS: GABAPENTIN 100 MG CAP PO SCH ×4 (00:59→20:24)
[2018-10-07] MEDS: RAMELTEON 8 MG TAB (ROZEREM) PO SCH ×2 (01:00→20:25)
[2018-10-07 07:40] LABS: BASO % 0.4 % (0.0-1.0); EOS # 0.3 10^3/uL (0.0-0.50); EOS % 2.7 % (0.0-3.0); HEMATOCRIT 35.4 % (36.0-47.0); HEMOGLOBIN 11.9 g/dl (12.0-15.5); LYMPH # 3.6 10^3/uL (1.5-4.5); LYMPH % 37.2 % (24.0-44.0); MEAN CORPUSCULAR HEMOGLOBIN 30.4 pg (27.0-33.0); MEAN CORPUSCULAR HGB CONC 33.6 g/dl (32.0-36.5); MEAN CORPUSCULAR VOLUME 90.3 fl (80.0-96.0); MONO # 0.7 10^3/uL (0.0-0.8); MONO % 6.9 % (0.0-5.0); NEUTROPHILS % 52.6 % (36.0-66.0); PLATELET COUNT, AUTOMATED 200 10^3/uL (150-450); RED BLOOD COUNT 3.92 10^6/uL (4.00-5.40); WHITE BLOOD COUNT 9.6 10^3/uL (4.0-10.0)
[2018-10-07 07:57] LABS: BLOOD UREA NITROGEN 34 MG/DL (7-18); CALCIUM LEVEL 8.9 MG/DL (8.8-10.2); CARBON DIOXIDE LEVEL 25 MEQ/L (21-32); CHLORIDE LEVEL 109 MEQ/L (98-107); CREATININE FOR GFR 0.72 MG/DL (0.55-1.30); GLOMERULAR FILTRATION RATE > 60.0 (>45); GLUCOSE, FASTING 106 MG/DL (70-100); SODIUM LEVEL 140 MEQ/L (136-145)
[2018-10-07] MEDS ORDERED: MEMANTINE 5MG TABLET (NAMENDA) PO SCH (09:00)
[2018-10-07] MEDS ORDERED: ASPIRIN 81 MG ENTERIC TAB PO SCH (09:00)
--- NOTE | 2018-10-07 09:02 | REP ---
Portable chest x-ray: Single view. History: Altered mental status. Comparison study: September 18, 2018. Findings: EKG monitoring electrodes overlie the chest. Heart is not enlarged. Pleural angles are sharp. Oxygen delivery tubing is seen. No infiltrate is seen. The aorta is tortuous. Impression: No active disease. Electronically Signed by Mitch Voss MD 10/07/2018 08:53 A
[2018-10-07] MEDS ORDERED: HALOPERIDOL 5 MG/ML VIAL (J1630) IM ONE (10:00)
[2018-10-07] MEDS: HEPARIN SOD (PORCINE) 5000 UNITS/ML VIAL SQ SCH ×2 (10:11→20:24)
[2018-10-07] MEDS ORDERED: LABETALOL HCL 100 MG/20 ML VIAL As Ordered ONE (15:36)
[2018-10-07] MEDS ORDERED: LABETALOL HCL 100 MG/20 ML VIAL IV ONE (15:45)
[2018-10-07 16:25] VITALS: BP 112/65
[2018-10-07 20:25] VITALS: BP 171/86
--- NOTE | 2018-10-07 21:34 | IPNPDOC ---
Date Seen The patient was seen on 10/07/18. Progress Note Patient was seen and examined - was sleeping, but easily arousable at the time when I saw her. Nurse complained earlier that she was very aggressive , so I ordered 2mg of haldol . Which calm her down a lot . Her right leg has multiple areas of excoriation and right foot with dry uninfected ulcer . Her nails are very long which needs to be groomed. Patient will be dc tomorrow to [place] VS, I&O, 24H, Fishbone Vital Signs/I&O Vital Signs Date Time Temp Pulse Resp B/P (MAP) Pulse Ox O2 Delivery O2 Flow Rate FiO2 10/07/18 20:25 109 171/86 10/07/18 16:25 97.4 18 98 10/07/18 15:51 Room Air Laboratory Data 24H LABS Laboratory Tests 2 10/07/18 07:07: Immature Granulocyte % (Auto) 0.2, White Blood Count 9.6, Red Blood Count 3.92L, Hemoglobin 11.9L, Hematocrit 35.4L, Mean Corpuscular Volume 90.3, Mean Corpuscular Hemoglobin 30.4, Mean Corpuscular Hemoglobin Concent 33.6, Red Cell Distribution Width 12.2, Platelet Count 200, Neutrophils (%) (Auto) 52.6, Lymphocytes (%) (Auto) 37.2, Monocytes (%) (Auto) 6.9H, Eosinophils (%) (Auto) 2.7, Basophils (%) (Auto) 0.4, Neutrophils # (Auto) 5.0, Lymphocytes # (Auto) 3.6, Monocytes # (Auto) 0.7, Eosinophils # (Auto) 0.3, Basophils # (Auto) 0.0, Nucleated Red Blood Cells % (auto) 0.0, Anion Gap 6L, Glomerular Filtration Rate > 60.0, Blood Urea Nitrogen 34H, Creatinine 0.72, Sodium Level 140, Potassium Level 4.0, Chloride Level 109H, Carbon Dioxide Level 25, Calcium Level 8.9 10/07/18 12:50: Bedside Glucose (Misc Panel) 109 10/07/18 17:02: Bedside Glucose (Misc Panel) 109 CBC/BMP Laboratory Tests 10/07/18 07:07 Red Blood Count 3.92 L, Mean Corpuscular Volume 90.3, Mean Corpuscular Hemoglobin 30.4, Mean Corpuscular Hemoglobin Concent 33.6, Red Cell Distribution Width 12.2, Neutrophils (%) (Auto) 52.6, Lymphocytes (%) (Auto) 37.2, Monocytes (%) (Auto) 6.9 H, Eosinophils (%) (Auto) 2.7, Basophils (%) (Auto) 0.4, Neutrophils # (Auto) 5.0, Lymphocytes # (Auto) 3.6, Monocytes # (Auto) 0.7, Eosinophils # (Auto) 0.3, Basophils # (Auto) 0.0, Calcium Level 8.9 Microbiology Microbiology 10/06/18 Blood Culture - Preliminary, Resulted No growth after 24 hours . All specim... 10/06/18 Blood Culture - Preliminary, Resulted No growth after 24 hours . All specim... 10/06/18 Urine Culture, Received Pending OLIVER IRIZARRY MD Oct 07, 2018 21:34
[2018-10-07 22:00] VITALS: BP 171/86
[2018-10-08 06:00] VITALS: BP 132/71
--- NOTE | 2018-10-08 08:59 | DSES ---
DATE OF ADMISSION: 10/06/2018 DATE OF DISCHARGE: PRIMARY CARE PHYSICIAN: Unknown. HISTORY: Ericka Bustamante was brought to the emergency room (ER) by her who could not take care of her at home with anticipation of snf placement. HOSPITAL COURSE: The patient was admitted to a bed up on [address] [place]. She did not have any active medical problems. Her daughter was in the room when I rounded on her today to discharge her. It was my first encounter with the patient. She said she did not know who the patient's primary care provider was or have any of her medical history. On the day of discharge, she is afebrile. Blood pressure 132/61. Pulse 79. Respiratory rate 18. 98% oxygen saturation on room air. General Appearance: She is lying in bed. She is sleeping. Her hands are gloved. Lungs: Clear. Heart: Regular rhythm. 1/6 systolic ejection murmur. Abdomen: Soft. Nontender. No masses. Status post right below knee amputation (BKA). Left lower extremity has a dry noninfected medial ulcer, numerous excoriations. LABS: Yesterday, white count 9.6, hemoglobin 11.9, platelets 200. Sodium 140, potassium 4.0, BUN 34, creatinine 0.7, glucose 106. Fingerstick blood sugars have been in the 100 range. DISPOSITION: She is discharged to a snf today, I believe in the [place] region. Activity as tolerated. Diet as tolerated, it should be no added salt consistent carbohydrate. Medicines are unchanged from admission. Tylenol as needed, aspirin 81 mg daily, atorvastatin 40 mg daily, Aricept 5 mg daily, gabapentin 100 mg three times a day, Namenda 5 mg daily, metformin ER 750 mg daily, metoprolol tartrate 25 mg twice a day, Rozerem 8 mg at bedtime.
== END 2018-10-08 09:25 | disposition other institution (70) ==
LOC: M ED 17:57 → M ED INP 17:58 → M MS5PR 10-07 16:15
PROVIDERS: ADMIT Hospitalist; ATTEND Internal Medicine
DX: F03.91 Unspecified dementia, unspecified severity, with behavioral disturbance (principal); Z75.1 Person awaiting admission to adequate facility elsewhere; E11.9 Type 2 diabetes mellitus without complications; E78.5 Hyperlipidemia, unspecified; Z79.82 Long term (current) use of aspirin; Z79.84 Long term (current) use of oral hypoglycemic drugs; Z89.511 Acquired absence of right leg below knee; Z79.899 Other long term (current) drug therapy
CPT/HCPCS: 36415; 70450; 71045; 80048; 80076; 81001; 82140; 82550; 82553; 83605; 84443; 84484; 85025; 87040; 87086; 93005; 93041; 94760; 96361; 96372; 96374; 99285; G0378; G0480; J1200; J1630; J2060